=== PATIENT | female | born 1985 | race African-American/Black ===

== ENCOUNTER 2022-03-29 17:09 | Outpatient (CLI) | payer MEDICAID, SELFPAY ==
[2022-04-04 00:59] LABS: Progesterone, HPLC-MS/MS 0.16 ng/mL
== END 2022-03-29 17:10 | disposition home or self-care (01) ==
PROVIDERS: Visit Provider Obstetrics & Gynecology
DX: E03.8 Other specified hypothyroidism (principal); N91.5 Oligomenorrhea, unspecified; N97.0 Female infertility associated with anovulation
CPT/HCPCS: 84144; 84443

== ENCOUNTER 2022-05-22 07:38 | Day surgery (SDC) | payer MEDICAID, SELFPAY ==
[2022-05-22 08:02] VITALS: BMI 40.2
--- NOTE | 2022-05-22 08:10 | PM.PROC ---
Procedure Note Time Seen by Provider: 08:11 Date Seen: 05/22/22 Date of procedure: 05/22/22 Will [facility] bill your pro fee for this procedure?: Yes Procedure: Preoperative diagnosis: Deana is a 36 year-old: endometrial polyp on office hysteroscopy performed by her erp manager on 05/17/22. Left labia majora cysts Postoperative diagnosis: Same Procedure: 1. Vulvar biopsy. 2. Hysteroscopy, Dilation and Curettage using the Truclear incisor Anesthesia: Conscious sedation, paracervical block, local. Surgeon: Alda Lerner MD Interpreter Translator: None Estimated blood loss: 5 mL Specimen: 1. L labial cyst x2. 2. Endometrial curettings. Both sent to pathology. Findings: Exam under anesthesia: There is a 1 x 1 cm firm, cystic mass at the inferior aspect of the left labia majora, just left of the introitus with an adjacent 2 x 3 mm cyst just inferior to the larger labial mass. Uterus: anteverted position, approximately 8 week sized, mobile, with no masses or nodularity palpable. Uterus sounded to 9 cm. No adnexal masses or nodularity palpable. On hysteroscopy: no endometrial polyps noted. The posterior endometrium appeared somewhat thickened otherwise normal endometrium Procedure: Deana was taken to the operating operating room more conscious sedation was found to be adequate. The patient was placed on in the dorsal lithotomy position and an exam under anesthesia was performed with findings stated above. She was then prepped and draped in a normal sterile manner. the base of the labial cysts was injected with 0.5% Marcaine. The larger cysts was then grasped with a forceps and the cyst removed from the base with a scalpel. The smaller cyst was then grasped and removed with the scalpel. The skin was reapproximated using 4-0 Vicryl in a running manner. A bivalve speculum was placed in the vagina. The cervix appears nulliparous. Otherwise no abnormalities. The paracervical block was placed using 0.5% Marcaine, 5 mL was injected at the 4 and 8 o'clock positions on the cervix. The anterior lip of the cervix was grasped with a long Allis clamp. The cervix dilated to Hegar 6. The uterus sounded to 9 cm. The Truclear hysteroscope was advanced into the uterus. A diagnostic hysteroscopy was performed with normal saline as the insufflation medium. Findings are stated above. The Truclear incisor was then advanced through the camera. The curettage was performed with the incisor over an approximately 1 -2 minutes. The incisor was then removed. The endometrial cavity appeared normal. Saline deficit at the end of the procedure 125 mL. Total saline used 1290 mL. nothing was needed for hemostasis The hysteroscope, Allis clamp and speculum were removed from the vaginal canal. The patient tolerated the procedure well. Sponge, lap and instrument counts were correct x2 at the end of the procedure. The patient was taken to the recovery area in stable condition. She received 200mg doxycycline PO prior to the procedure. Received 30 mg Toradol IV prior to being awakened from anesthesia. Surgeon: Alda Lerner MD
[2022-05-22 08:14] LABS: Ur HCG Qualitative* Negative (Negative)
[2022-05-22] MEDS: LACTATED RINGERS 1000 ML 1,000 ML 100 ML IV (08:20)
[2022-05-22] MEDS: SODIUM CHLORIDE 0.9 % (FLUSH) 10 ML SYRINGE IVF (08:20)
[2022-05-22 08:31] VITALS: BP 114/75; PULSE 60; RESP 18; TEMP 36.3; O2SAT 98
[2022-05-22 10:04] VITALS: BP 86/64; PULSE 60; RESP 14; TEMP 35.9; O2SAT 97
[2022-05-22 10:06] VITALS: BP 93/67; PULSE 59; RESP 16; O2SAT 96
--- NOTE | 2022-05-22 10:10 | W.ANESCHARGE ---
Anesthesia Charges Start Date/Time Anesthesia Start Date: 05/22/22 Anesthesia Start Time: 09:18 Stop Date/Time Anesthesia Stop Date: 05/22/22 Anesthesia Stop Time: 10:08 Summary Emergency: No
[2022-05-22 10:15] VITALS: BP 100/65; PULSE 53; RESP 16; O2SAT 97
[2022-05-22 10:30] VITALS: BP 115/77; PULSE 53; RESP 16; O2SAT 98
[2022-05-22 10:45] VITALS: BP 127/89; PULSE 49; RESP 16; O2SAT 99
--- NOTE | 2022-05-22 11:14 | W.ANESCHARGE ---
Anesthesia Charges Start Date/Time Anesthesia Start Date: 05/22/22 Anesthesia Start Time: 09:18 Stop Date/Time Anesthesia Stop Date: 05/22/22 Anesthesia Stop Time: 10:08 Summary Emergency: No
== END 2022-05-22 11:40 | disposition home or self-care (01) ==
PROVIDERS: Visit Provider Obstetrics & Gynecology
PROC: 0UDB8ZZ Extraction of Endometrium, Via Natural or Artificial Opening Endoscopic (ICD-10-PCS; CPT 58558; principal; 2022-05-22 09:00)
DX: N84.0 Polyp of corpus uteri (principal); N90.7 Vulvar cyst
CPT/HCPCS: 58558; 11426; 11422; 00952; 81025; 88305; 88341; 88342; J1100; J1885; J2250; J2405; J2704; J3010; J7120

== ENCOUNTER 2022-11-23 12:18 | Outpatient (CLI) | payer MEDICAID, SELFPAY ==
--- NOTE | 2022-11-23 12:15 | CRLHL7_ITS ---
For Patients: As a result of the Cures Act, medical imaging exams and procedure reports are released immediately into your electronic medical record. You may view this report before your referring provider. If you have questions, please contact your health care provider. INDICATION: First trimester scan, establish dates. COMPARISON: None. TECHNIQUE: Real-time wynn-scale imaging of the pelvis was performed. FINDINGS: Sonographic imaging demonstrates a single living intrauterine gestation. The embryo demonstrates a regular cardiac rate measuring 163 beats per minute. The embryo`s crown-rump length measurement of 3.2 cm corresponds to a gestational age of 10 weeks 0 days with a sonographic due date of 06/21/2023. There is a normal-appearing yolk sac. There are no gross abnormalities noted within the embryo at this early state of development. The gestational sac has a normal appearance. There is no evidence of a perigestational hemorrhage. The amount of fluid within the sac appears appropriate for gestational age. The cervix is closed. The myometrium appears normal. The ovaries are of normal size. Corpus luteal cyst left ovary. There are no suspicious fluid collections noted in the cul-de-sac. IMPRESSION: Normal first trimester OB ultrasound exam. Gestational age calculated at 10 weeks 0 days with a sonographic due date of 06/21/2023. Dictated by Jorgito Nassar MD @ 11/23/2022 12:56:55 PM (Electronically Signed)
== END 2022-11-23 12:19 | disposition home or self-care (01) ==
LOC: US 12:18
PROVIDERS: Visit Provider Physician Assistant
DX: Z34.91 Encounter for supervision of normal pregnancy, unspecified, first trimester (principal); Z3A.10 10 weeks gestation of pregnancy
CPT/HCPCS: 76801

== ENCOUNTER 2022-11-23 14:10 | Outpatient (CLI) | payer MEDICAID, SELFPAY | END 2022-11-23 14:11 | disposition home or self-care (01) | PROVIDERS: Visit Provider Physician Assistant | DX: Z34.91 Encounter for supervision of normal pregnancy, unspecified, first trimester (principal); Z3A.10 10 weeks gestation of pregnancy | CPT/HCPCS: 86592; 86703; 86762; 86787; 86803; 86850; 86870; 86885; 86900; 86901; 86905; 87086; 87340 ==

== ENCOUNTER 2023-03-29 09:10 | Outpatient (CLI) | payer MEDICAID, SELFPAY | END 2023-03-29 09:11 | disposition home or self-care (01) | LOC: NFLDREF 04-03 10:56 | PROVIDERS: Referring Provider Obstetrics & Gynecology; Visit Provider Obstetrics & Gynecology | DX: Z34.92 Encounter for supervision of normal pregnancy, unspecified, second trimester (principal); Z3A.27 27 weeks gestation of pregnancy | CPT/HCPCS: 86592 ==

== ENCOUNTER 2023-04-12 07:04 | Outpatient (CLI) | payer MEDICAID, SELFPAY ==
--- NOTE | 2023-04-12 07:15 | CRLHL7_ITS ---
For Patients: As a result of the Century Cures Act, medical imaging exams and procedure reports are released immediately into your electronic medical record. You may view this report before your referring provider. If you have questions, please contact your health care provider. INDICATION: Third trimester scan, evaluate growth. COMPARISON: 01/01/2023 TECHNIQUE: Real time wynn scale imaging of the fetus was performed. FINDINGS: Sonographic imaging demonstrates a single living intrauterine gestation. Fetus demonstrates a regular cardiac rate of 163 beats per minute. Fetus has a vertex position. The placenta lies posteriorly. Amniotic fluid volume appears normal and there is a single deepest vertical pocket: 6.3 cm. The estimated weight is 1739gm which lies at the 86th %. BPD 86th percentile. HC 79th percentile. AC 93rd percentile. FL 38th percentile. The HC/AC ratio measures 1.05 range (0.96-1.16). IMPRESSION: Sonographic gestational age 31 weeks 3 days and sonographic due date 06/11/2023. Sonographic age 11 days ahead of the clinical age. Estimated weight 86th percentile. Abdominal circumference 93rd percentile. Dictated by Jorgito Nassar MD @ 04/12/2023 8:21:28 AM (Electronically Signed)
== END 2023-04-12 07:05 | disposition home or self-care (01) ==
LOC: US 07:05
PROVIDERS: Visit Provider Obstetrics & Gynecology
DX: Z34.93 Encounter for supervision of normal pregnancy, unspecified, third trimester (principal); Z3A.31 31 weeks gestation of pregnancy
CPT/HCPCS: 76816

== ENCOUNTER 2023-05-13 08:17 | Outpatient (CLI) | payer MEDICAID, SELFPAY ==
--- NOTE | 2023-05-13 08:15 | CRLHL7_ITS ---
For Patients: As a result of the Century Cures Act, medical imaging exams and procedure reports are released immediately into your electronic medical record. You may view this report before your referring provider. If you have questions, please contact your health care provider. INDICATION: SIZE GREATER THAN DATES COMPARISON: 04/12/2023 TECHNIQUE: Real time wynn scale imaging of the fetus was performed. FINDINGS: Sonographic imaging demonstrates a single living intrauterine gestation. Fetus demonstrates a regular cardiac rate of 142 beats per minute. Fetus has a vertex position. The placenta lies posteriorly. Amniotic fluid volume appears normal and there is a single deepest vertical pocket: 5.0 cm. The estimated weight is 2805gm which lies at the 88th %. On the prior OB ultrasound exam dated 04/12/2023 the estimated weight was at the 86th%. BPD 92nd percentile. HC 82nd percentile. AC greater than 97th percentile. FL 26th percentile. The HC/AC ratio measures 0.99 range (0.93-1.08). IMPRESSION: Sonographic gestational age 35 weeks 6 days and sonographic due date 06/11/2023. Sonographic age 11 days ahead of the clinical age. Estimated weight 88th percentile. Abdominal circumference greater than 97th percentile. Dictated by Jorgito Nassar MD @ 05/13/2023 9:29:36 AM (Electronically Signed)
== END 2023-05-13 08:18 | disposition home or self-care (01) ==
LOC: US 08:17
PROVIDERS: Visit Provider Obstetrics & Gynecology
DX: O36.63X0 Maternal care for excessive fetal growth, third trimester, not applicable or unspecified (principal); Z3A.35 35 weeks gestation of pregnancy
CPT/HCPCS: 76816

== ENCOUNTER 2023-05-24 11:15 | Outpatient (CLI) | payer MEDICAID, SELFPAY | END 2023-05-24 11:16 | disposition home or self-care (01) | LOC: NFLDREF 05-28 11:52 | PROVIDERS: Visit Provider Advanced Practice Midwife | DX: Z34.93 Encounter for supervision of normal pregnancy, unspecified, third trimester (principal); O09.03 Supervision of pregnancy with history of infertility, third trimester; Z3A.35 35 weeks gestation of pregnancy | CPT/HCPCS: 87081; 87653 ==

== ENCOUNTER 2023-05-27 09:12 | Outpatient (CLI) | payer MEDICAID, SELFPAY ==
--- NOTE | 2023-05-27 09:15 | CRLHL7_ITS ---
For Patients: As a result of the Century Cures Act, medical imaging exams and procedure reports are released immediately into your electronic medical record. You may view this report before your referring provider. If you have questions, please contact your health care provider. INDICATION: AMA, IVF COMPARISON: 05/13/2023 TECHNIQUE: Real time wynn scale imaging of the fetus was performed. Without non-stress testing. FINDINGS: Sonographic imaging demonstrates a single living intrauterine gestation. Fetus demonstrates a regular cardiac rate of 157 beats per minute. Fetus has a vertex position. The amniotic fluid volume appears normal and there is a single deepest pocket measurement of 5.5 cm. The fetus was active and demonstrated normal breathing movements. There was normal flexion and extension of the trunk and extremities. IMPRESSION: Normal biophysical profile score of 8 out of 8. Dictated by Jorgito Nassar MD @ 05/28/2023 5:36:10 AM (Electronically Signed)
== END 2023-05-27 09:13 | disposition home or self-care (01) ==
LOC: US 09:12
PROVIDERS: Visit Provider Obstetrics & Gynecology
DX: O09.529 Supervision of elderly multigravida, unspecified trimester (principal)
CPT/HCPCS: 76819

== ENCOUNTER 2023-06-08 18:38 | Outpatient (CLI) | payer MEDICAID, SELFPAY ==
[2023-06-08 18:50] VITALS: BP 121/68; PULSE 116; O2SAT 97
[2023-06-08 18:51] VITALS: TEMP 36.8
--- NOTE | 2023-06-08 20:07 | PC.OBNST ---
NST Note NST Note Start: 06/08/23 18:54 Freq: ONCE Status: Active Protocol: Document 06/08/23 20:04 BRAD (Rec: 06/08/23 20:05 AAP [id number]) NST Note 2 Para (# of births) 1 EDC 06/22/23 Gestational Age In Weeks & Days 38 Weeks & 0 Days High Risk Factors Advanced Maternal Age Patient Presented with Complaint(s) of Contractions/cramping Other Complaints Rule out labor Reactive Yes Appropriate for Gestational Age Yes RIN Posada, RN Date 06/08/23 Reactive Yes Appropriate for Gestational Age Yes RIN Parekh, RIN Date 06/08/23 OB NST charge Yes Complete NST Note via Write Note Yes The provider's electronic signature indicates the NST is reactive/appropriate for gestational age. *Note to provider: If an addendum is required, open the patient's chart and click on the note under the Nurse/Allied Health tab.
== END 2023-06-08 19:55 | disposition home or self-care (01) ==
LOC: OB OUT 18:39 → OB 18:39
PROVIDERS: Visit Provider Obstetrics & Gynecology
DX: O47.1 False labor at or after 37 completed weeks of gestation (principal); Z3A.38 38 weeks gestation of pregnancy
CPT/HCPCS: 59025; 99213

== ENCOUNTER 2023-06-14 10:01 | Outpatient (CLI) | payer MEDICAID, SELFPAY ==
[2023-06-14 10:04] VITALS: PULSE 98; O2SAT 98
[2023-06-14 10:07] VITALS: BP 103/63; PULSE 87
[2023-06-14 10:09] VITALS: PULSE 91; TEMP 36.6; O2SAT 96
[2023-06-14 10:14] VITALS: PULSE 76; O2SAT 97
[2023-06-14] MEDS: MORPHINE 10 MG/ML inj IM (11:39)
[2023-06-14] MEDS: hydrOXYzine pamoate 25 MG CAPSULE 100 MG PO (11:40)
--- NOTE | 2023-06-14 13:15 | PC.OBNST ---
NST Note NST Note Start: 06/14/23 10:10 Freq: ONCE Status: Active Protocol: Document 06/14/23 11:43 GREGOR (Rec: 06/14/23 11:56 GREGOR [id number]) NST Note 2 Para (# of births) 1 EDC 06/22/23 Gestational Age In Weeks & Days 38 Weeks & 6 Days High Risk Factors Advanced Maternal Age Patient Presented with Complaint(s) of Contractions/cramping Reactive Yes Appropriate for Gestational Age Yes RIN Mccrary Date 06/14/23 Reactive Yes Appropriate for Gestational Age Yes RIN Delgado RN Date 06/14/23 OB NST charge Yes Complete NST Note via Write Note Yes The provider's electronic signature indicates the NST is reactive/appropriate for gestational age. *Note to provider: If an addendum is required, open the patient's chart and click on the note under the Nurse/Allied Health tab.
== END 2023-06-14 13:05 | disposition home or self-care (01) ==
LOC: OB OUT 10:01 → OB 10:02
PROVIDERS: Visit Provider Obstetrics & Gynecology
DX: O47.1 False labor at or after 37 completed weeks of gestation (principal); Z3A.38 38 weeks gestation of pregnancy
CPT/HCPCS: 59025; 99213; A9270; J2270

== ENCOUNTER 2023-06-17 06:43 | Inpatient (IN) | payer MEDICAID, SELFPAY ==
[2023-06-17] VITALS (43 sets, daily range): BP systolic 112–143; BP diastolic 58–84; PULSE 60–96; RESP 18; TEMP 36.5–37.2; O2SAT 97–100; BMI 34.8
--- NOTE | 2023-06-17 07:35 | W.PM.LDBA ---
Subjective History of Present Illness Time Seen by Provider: 07:25 Narrative: Patient is being admitted to Labor and Delivery for induction of labor secondary to AMA and IVF . She is a 37 year old at 39 2/7 weeks gestation. Her full history and physical was dictated by Dr. Mao on 06/03/23. Please see this for details. She feels well this morning. Has had contractions intermittently for a week. Was in to the Center on Saturday for rule out labor and given medication to help her sleep. Specific Issues/Plans Spouse: Yony Olivarez. Daughter: Ashley, born 2006 in [place]. Baby: Boy! H&P 06/03/2023 Dr. Mao 1. IVF Patient reports pre implantation genetics, they are having a boy Level 2 ultrasound with the echo, consult with [facility]: Order entered on 12/21/2022: scheduled for 01/25: Normal. echocardiogram 02/27/2023: Normal. Growth at 30 and 36 weeks recommended by [facility]: 04/12/23: EFW 86%tile, AC 93%tile. SDP 6.3 cm 05/13/23: EFW 88%ile, AC >97%ile. SDP 5.0cm Weekly NST starting at 34 weeks recommended by [facility] Consider delivery at 39 weeks: she would prefer the soonest available which would be on 06/17/23 she will be 39 2/7, form sent out. 2. Obesity, BMI 39.7 Hemoglobin A1c: 5.2% Early 1 hour GTT: 87 Anesthesia consult Consider offering nutrition consult testing Daily ASA 81mg - stopped at 37 weeks. 3. AMA, >35 4. Declined gonorrhea and chlamydia, had STI screening prior to IVF 5. 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 Select blood for transfusion based on serologic compatibility 6. Bilateral carpal tunnel -suboptimal response to wrist splints -Referral to orthopedics placed 04/26/23, did not go TDAP 05/10/23 Flu declined RSV declined Covid booster Declined OB - Problem Based A/P Additional Plan (1) Advanced maternal age (AMA) in : Status: Acute (2) Conceived by in vitro fertilization: Status: Acute Delivery/Labor/Induction Plan Plan: induction Induction method: per pitocin protocol OB Result Labs Blood Type: B (+) positive Rubella: immune RPR/VDLR: nonreactive GBS Status: negative HBsAG: negative OB Exam Physical Exam Vital signs: Pulse BP Pulse Ox 69 132/83 97 06/17/23 07:17 06/17/23 07:17 06/17/23 07:18 Narrative: General Appearance: Alert, cooperative black female in no acute distress Pulm: CTA bilaterally CV: RRR Ext: trace edema Detailed Labor and Delivery Exam Patient Gravid: Yes Dilation (cm): 3 Effacement (%): 80 Cervix position: mid Consistency: soft Contraction Frequency: Occasional Contraction intensity: Mild Fetus (Single) Station: -2 (well applied)
[2023-06-17 08:20] LABS: Basophils Percent Auto 0.3 % (0.0-3.0); Eosinophils Percent Auto 0.5 % (0.0-7.0); Hematocrit 34.4 % (33.0-51.0); Hemoglobin* 11.2 gm/dL (12.0-16.0); Immature Granulocytes Pct Auto 0.3 %; Lymphocytes Percent Auto 38.4 % (20-44); Mean Corpuscular HGB Conc 33 gm/dL (32-36); Mean Corpuscular Hemoglobin 28 pg (26-34); Mean Corpuscular Volume 85 fL (80-100); Monocytes Percent Auto 9.8 % (0.0-11.0); Neutrophils Percent Auto 50.7 % (42.0-72.0); Platelet Count* 108 K/uL (140-440); Red Blood Count 4.05 m/uL (4.00-5.20); White Blood Count* 3.67 K/uL (4.50-11.00)
[2023-06-17 08:21] LABS: Slide Review Reflex No
[2023-06-17] MEDS: LACTATED RINGERS 1000 ML 1,000 ML 125 ML IV ×3 (08:32→19:24)
[2023-06-17] MEDS: OXYTOCIN 30 unit/500 ML in NS 30 UNIT/500 ML BAG IVPB (08:33)
[2023-06-17 16:17] LABS: Platelet Count* 131 K/uL (140-440)
[2023-06-17] MEDS: ROPIVACAINE 0.2% 100 ml 100 ML 12 MG EPIDURAL (16:55)
[2023-06-17] MEDS: LIDOCAINE 2% (PF) 5 ML VIAL EPIDURAL (16:55)
[2023-06-17] MEDS: ROPIVACAINE 0.2 % PF 10 ML INJ 20 MG EPIDURAL (16:56)
--- NOTE | 2023-06-17 17:11 | PM.ANBPRC ---
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 (ICD-10) Oligomenorrhea ?N91.5 - Oligomenorrhea, unspecified (ICD-10) Female infertility associated with anovulation ?N97.0 - Female infertility associated with anovulation (ICD-10) Endometrial polyp ?N84.0 - Polyp of corpus uteri (ICD-10) Obesity (BMI 35.0-39.9 without comorbidity) ?E66.9 - Obesity, unspecified (ICD-10) Subclinical hypothyroidism ?E03.8 - Other specified hypothyroidism (ICD-10) Pyogenic granuloma of skin (2019) ?L98.0 - Pyogenic granuloma (ICD-10) Polycystic ovary syndrome ?E28.2 - Polycystic ovarian syndrome (ICD-10) Surgical History History of hysteroscopy ?Z98.890 - Other specified postprocedural states (ICD-10) Social History (Updated 06/03/23 @ 09:17 by Shania Mao MD) Narrative: Lives in [place] with daughter, sister, mother and . Works as [employer]. Will return in July. She doesn't smoke, ETOH, recreational drug use. Originally from [facility]. What is your current living situation?: I presently have a place to live Problems where you live: no known problems In the past 12 months, utilities in danger of being shut off: no In past 12 months, lack of transportation kept you from medical appts, meetings, work, or getting things needed for daily living: no In the past 12 mos, have been you worried that your food would run out before you had money to buy more?: never true In the past 12 mos, the food you bought just didn't last and you didn't have money to buy more?: never true Smoking Status: Never smoker Do you use any of these nicotine containing products: None How often do you have a drink containing alcohol: never How often do you have six or more drinks on one occasion: Never AUDIT-C Alcohol total score: 0 Non-prescribed substance use: denies use Caffeine: Yes (coffee once in a while) How often does anyone, including family, friends and others, physically hurt you: never How often does anyone, including family, friends and others, insult or talk down to you: never How often does anyone, including family, friends and others, threaten you with harm: never How often does anyone, including family, friends and others, scream or curse at you: never Little interest or pleasure in doing things: not at all Feeling down, depressed, or hopeless: not at all Are you using contraception or practicing any form of control: No Meds Home Medications and Allergies Allergies Allergy/AdvReac Type Severity Reaction Status Date / Time No Known Allergies Allergy Verified 06/10/23 09:09 Results Labs Labs: Laboratory Results - last 24 hr 06/17/23 06/17/23 08:07 16:13 WBC 3.67 L RBC 4.05 Hgb 11.2 L Hct 34.4 MCV 85 MCH 28 MCHC 33 RDW Coeff of Dora 15.0 Plt Count 108 L 131 L Neut % (Auto) 50.7 Lymph % (Auto) 38.4 Meriwether % (Auto) 9.8 Eos % (Auto) 0.5 Baso % (Auto) 0.3 Neut # (Auto) 1.90 Lymph # (Auto) 1.40 Meriwether # (Auto) 0.40 Eos # (Auto) 0.00 Baso # (Auto) 0.00 Abs Immat Gran (auto) 0.00 Imm/Tot Granulo (auto) 0.3 Blood Type B Positive Antibody Screen NEGATIVE Vital Signs Vital Signs: Last Vital Signs Temp 98.0 F 06/17/23 15:48 Pulse 85 06/17/23 17:07 BP 125/79 06/17/23 17:07 Pulse Ox 99 06/17/23 16:55 Weight: 103.873 kg Height: 172.72 cm Anesthesia Procedures Epidural Insertion Patient Location: OB Start Time: 16:30 Stop Time: 17:12 Start Date: 06/17/23 Stop Date: 06/17/23 Reason for Block: procedure for pain Patient Position: sitting Performed By: Jozef Pritchard Preanesthetic Checklist: IV checked, risks and benefits discussed, surgical consent, monitors and equipment checked, pre-op evaluation, timeout performed and anesthesia consent Prep: chlorhexidine gluconate Monitoring: blood pressure monitoring, continuous pulse oximetry and heart rate Approach: midline Vertebral Space: lumbar (1-5) Epidural Technique: KAMAR air Needle Type: Tuohy needle Injection Technique: continuous catheter Needle gauge: 17 Needle Length (cm): 10 cm Needle Insertion Depth (cm): 7 Catheter Gauge: 19 Catheter Type: multi-orifice Catheter at skin depth (cm): 13 Test Dose Result: negative and lidocaine 1.5% with epinephrine 1 to 200,000
--- NOTE | 2023-06-17 18:09 | PM.OBPNL ---
Subjective Time Seen by Provider: 18:09 Date Seen: 06/17/23 Narrative: The patient is comfortable after epidural placement. She is unaware of contractions. Objective Vital Signs: Last Vital Signs Temp 98.0 F 06/17/23 15:48 Pulse 74 06/17/23 17:57 BP 122/70 06/17/23 17:57 Pulse Ox 99 06/17/23 16:55 Pelvic Exam Dilation (cm): 5 Effacement (%): 80 Station: -1 Contractions Monitor mode: External Contraction Frequency: 2-3 minutes Contraction intensity: Mild Pitocin Rate (mU/min): 16 Assessment Station: -2 (well applied) Amniotic Membrane Status: AROM (Amniotomy performed. Clear fluid noted.) Status: Category l Heart Rate Baseline: 135 Brake Linings Coater Variability: Moderate (6-25) Monitor Accelerations: Present Monitor Decelerations: None Plan Plan: Amniotomy performed. Continue Pitocin infusion. Anticipate vaginal delivery.
--- NOTE | 2023-06-17 21:35 | PM.OBPNL ---
Subjective Time Seen by Provider: 21:35 Date Seen: 06/17/23 Narrative: Patient still comfortable. FHR tracing demonstrating occasional variable and late decelerations. Called to review strip and evaluate patient. Objective Vital Signs: Last Vital Signs Temp 98.6 F 06/17/23 19:24 Pulse 69 06/17/23 21:23 BP 138/68 06/17/23 21:23 Pulse Ox 98 06/17/23 21:31 Pelvic Exam Dilation (cm): 8 Effacement (%): 90 Station: -1 Contractions Monitor mode: External Contraction pattern: Regular Contraction intensity: Strong/Firm Pitocin Rate (mU/min): 11 Assessment Station: -1 (well applied) Amniotic Membrane Status: AROM (Amniotomy performed. Clear fluid noted.) Status: Category ll Heart Rate Baseline: 135 Electric Track Switch Maintainer Variability: Moderate (6-25) Monitor Accelerations: Present Monitor Decelerations: Variable Plan Plan: IUPC and FSE placed. Continue to monitor.
[2023-06-17] MEDS: LACTATED RINGERS 1000 ML 1,000 ML 525 ML IV (22:16)
[2023-06-18] VITALS (32 sets, daily range): BP systolic 100–170; BP diastolic 64–97; PULSE 62–94; RESP 16–18; TEMP 36.4–37.2; O2SAT 91–98
--- NOTE | 2023-06-18 01:17 | W.PM.OBVAGDE ---
OB Procedure Vag Delivery Mother Details Mother Details: The patient is a 37 year-old, 2, Para 1, admitted on 06/17/23 at 39 Weeks and 2 Days gestation for induction of labor secondary to advanced maternal age and IVF . : 2 Para: 1 Weeks Gestation: 39.2 Admission Date: 06/17/23 Additional Details Amniotic Membrane Status: intact Amniotic Membrane Rupture Date: 06/17/23 Amniotic Membrane Rupture Time: 18:05 Amniotic Membrane Fluid Description: Clear Analgesia/Anesthesia Type: Epidural (@1620) Waterbirth: No Intrapartal Events: Labor Induction Induction Method: per pitocin protocol Delivery augmentation: rupture of membranes Labor Onset: 18:05 Complete: 23:38 Pushin:36 Heart: heart tones during second stage were category 2, baseline 125 bpm with variable decelerations. Delivery Details Delivery Date: 06/18/23 Delivery Time: 00:48 Route of delivery: Gender: Male Viability: Alive; Heart Rate Present Position at Delivery: OA Delivery Details: Delivered over 2nd degree perineal laceration via spontaneous vaginal delivery. There was a 90 second shoulder dystocia, relieved with Vitaliy positioning, suprapubic pressure, and Godoy screw maneuver. Nuchal cord x1 was reduced over the head prior to delivery of the shoulders. Infant was briefly placed on the maternal abdomen, noted to have poor tone and no spontaneous breathing efforts. Cord was quickly clamped and cut and the was taken to the warmer for evaluation and resuscitation. He required 40 seconds of PPV. Apgars were 1, 6 and 8 t 1, 5 and 10 minutes respectively. weight: 9# 6 oz. 1 Minute Interval Total Score: 1 5 Minute Interval Total Score: 6 10 Minute Interval Total Score: 8 Additional Details Shoulder Dystocia: Yes (90 seconds) Placenta Delivery Time: 10:08 Placental Delivery Description: Spontaneous (sent for pathology) Delivery repair: Chromic Procedure Done: Global Blood Loss: 200 Laceration: Perineal - 2nd Degree Episiotomy Description: None Blood Loss Measurement Type: QBL Bakri Used: No Sponge/Need Count Correct: Yes Cord Vessel Description: 3 Vessels (Cord gasses were drawn by RN and sent to lab) Event Summary Status: Mother and were stable after delivery. Disposition: floor
[2023-06-18] MEDS: miSOPROStoL 800 MCG/4 TABLET PR (01:18)
[2023-06-18 01:57] LABS: Hematocrit 36.4 % (33.0-51.0); Hemoglobin* 12.1 gm/dL (12.0-16.0); Mean Corpuscular HGB Conc 33 gm/dL (32-36); Mean Corpuscular Hemoglobin 28 pg (26-34); Mean Corpuscular Volume 84 fL (80-100); Platelet Count* 124 K/uL (140-440); Red Blood Count 4.34 m/uL (4.00-5.20); White Blood Count* 7.25 K/uL (4.50-11.00)
[2023-06-18 02:02] LABS: Slide Review Reflex No
[2023-06-18] MEDS: LABETALOL HCL 5 MG/ML inj IVP ×2 (02:06→02:22)
[2023-06-18 02:15] LABS: Alanine Aminotransferase* 18 U/L (4-35); Aspartate Amino Transferase* 38 U/L (12-35); Blood Urea Nitrogen* 5 mg/dL (5-24); Creatinine* 0.8 mg/dL (0.5-1.5); Est. Creatinine Clearance* 99.01; Estimated Glomerular Filt Rate 98 ml/min
[2023-06-18] MEDS: LACTATED RINGERS 1000 ML 1,000 ML 75 ML IV ×2 (02:16→11:49)
[2023-06-18] MEDS: MAGNESIUM IV 4 GM/100 ML PIGGYBACK IVPB (02:18)
[2023-06-18] MEDS: ACETAMINOPHEN 500 MG TABLET 1000 MG PO ×2 (03:21→09:17)
[2023-06-18] MEDS: IBUPROFEN 600 MG TABLET PO ×2 (06:00→11:50)
[2023-06-18 08:28] LABS: White Blood Count* 9.26 K/uL (4.50-11.00)
[2023-06-18 08:29] LABS: Hematocrit 32.2 % (33.0-51.0); Hemoglobin* 10.8 gm/dL (12.0-16.0); Mean Corpuscular HGB Conc 34 gm/dL (32-36); Mean Corpuscular Hemoglobin 28 pg (26-34); Mean Corpuscular Volume 83 fL (80-100); Platelet Count* 106 K/uL (140-440)
[2023-06-18 08:45] LABS: Slide Review Reflex No
[2023-06-18 08:58] LABS: Alanine Aminotransferase* 11 U/L (4-35); Aspartate Amino Transferase* 59 U/L (12-35); Blood Urea Nitrogen* 3 mg/dL (5-24); Creatinine* 0.7 mg/dL (0.5-1.5); Est. Creatinine Clearance* 113.16; Estimated Glomerular Filt Rate 116 ml/min
[2023-06-18 09:06] LABS: Magnesium* 4.3 mg/dL (1.5-2.6)
[2023-06-18] MEDS: DOCUSATE SODIUM 100 MG CAPSULE PO (09:17)
--- NOTE | 2023-06-18 10:34 | P.OBPN_ITS ---
OB - PN:Subj Subjective Date Seen: 06/18/23 Interval history: Marilia is a 37 yo G2 now P2-0-0-2 woman who is PPD 0 s/p vaginal delivery complicated by 90 second shoulder dystocia. She was diagnosed with preeclampsia with severe features based on blood pressure criteria . She was started on magnesium sulfate for seizure prophylaxis early this morning. OB Problem List: 1. IVF * Patient reports pre implantation genetics, they are having a boy * Level 2 ultrasound with the echo, consult with M: Order entered on 12/21/2022: scheduled for 01/25: Normal. * echocardiogram 02/27/2023: Normal. * Growth at 30 and 36 weeks recommended by [facility]: * 04/12/23: EFW 86%tile, AC 93%tile. SDP 6.3 cm * 05/13/23: EFW 88%ile, AC >97%ile. SDP 5.0cm * Weekly NST starting at 34 weeks recommended by [facility] * Consider delivery at 39 weeks: she would prefer the soonest available which would be on 06/17/23 she will be 39 2/7, form sent out. 2. Obesity, BMI 39.7 * Hemoglobin A1c: 5.2% * Early 1 hour GTT: 87 * Anesthesia consult * Consider offering nutrition consult * testing * Daily ASA 81mg - stopped at 37 weeks. 3. AMA, >35 4. Declined gonorrhea and chlamydia, had STI screening prior to IVF 5. 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 Select blood for trans fusion based on serologic compatibility 6. Bilateral carpal tunnel -suboptimal response to wrist splints -Referral to orthopedics placed 04/26/23, did not go Narrative: Marilia is feeling well. well. She is ambulating. Denies heavy bleeding, denies pain. No chest pain, no headache. OB - PN: Obj Exam Physical Exam: Vital signs: Temp Pulse Resp BP Pulse Ox O2 Del Method 98.2 F 87 16 114/69 98 Room Air 06/18/23 07:55 06/18/23 07:55 06/18/23 07:55 06/18/23 08:55 06/18/23 07:55 06/18/23 07:55 Fluid balance is +2955. She has had 2000 cc of urine in last 24 hours. Narrative: Physical exam: Vitals as noted above. General: No acute distress Psych: Alert and oriented x 3, full affect HEENT: Normocephalic, atraumatic Heart: Regular rate rhythm, no murmur rub or gallop Lungs: Clear to auscultation bilaterally Abdomen: Soft, NT, fundus below umbilicus Lower extremities: 2+ edema bilaterally to upper aspect of lower leg, nontender OB - PN: Obj Data Labs Labs: Laboratory Results - last 24 hr 06/17/23 06/18/23 06/18/23 16:13 01:50 08:21 WBC 7.25 9.26 RBC 4.34 3.90 L Hgb 12.1 10.8 L Hct 36.4 32.2 L MCV 84 83 MCH 28 28 MCHC 33 34 Plt Count 131 L 124 L 106 L BUN 5 3 L Creatinine 0.8 0.7 Estimated Creat Clear 99.01 113.16 Estimated GFR 98 116 Magnesium 4.3 H* AST 38 H 59 H ALT 18 11 OB - PN: A/P Delivery Assessment and Plan (1) Pre-eclampsia affecting puerperium: Problem details: with severe features (severely elevated BP) Status: Acute Assessment and Plan: Continue magnesium sulfate for at least 24 hours. She has not yet had diuresis, and I will watch for that. Continue labs every 6 hours. Her platelets have been on the low side but always above 100 thus far. Slight elevation of transaminases. Stable. (2) Vaginal delivery: Status: Acute Assessment and Plan: Otherwise, appropriate course . (3) Shoulder dystocia during labor and delivery, delivered: Status: Acute Plan day: 0 Comments: Anticipate discharge PPD #2.
[2023-06-18 14:49] LABS: Hematocrit 31.4 % (33.0-51.0); Hemoglobin* 10.6 gm/dL (12.0-16.0); Mean Corpuscular HGB Conc 34 gm/dL (32-36); Mean Corpuscular Hemoglobin 28 pg (26-34); Mean Corpuscular Volume 83 fL (80-100); Platelet Count* 115 K/uL (140-440); White Blood Count* 8.34 K/uL (4.50-11.00)
[2023-06-18 14:55] LABS: Slide Review Reflex No
[2023-06-18 15:19] LABS: Alanine Aminotransferase* 17 U/L (4-35); Aspartate Amino Transferase* 54 U/L (12-35); Blood Urea Nitrogen* 3 mg/dL (5-24); Creatinine* 0.7 mg/dL (0.5-1.5); Est. Creatinine Clearance* 113.16; Estimated Glomerular Filt Rate 116 ml/min
[2023-06-18 15:46] LABS: Magnesium* 5.1 mg/dL (1.5-2.6)
[2023-06-18 20:21] LABS: Hematocrit 32.2 % (33.0-51.0); Hemoglobin* 10.7 gm/dL (12.0-16.0); Mean Corpuscular HGB Conc 33 gm/dL (32-36); Mean Corpuscular Hemoglobin 28 pg (26-34); Mean Corpuscular Volume 84 fL (80-100); Platelet Count* 120 K/uL (140-440); Red Blood Count 3.85 m/uL (4.00-5.20)
[2023-06-18 20:23] LABS: Slide Review Reflex No
[2023-06-18 20:44] LABS: Creatinine* 0.9 mg/dL (0.5-1.5); Est. Creatinine Clearance* 88.01; Estimated Glomerular Filt Rate 86 ml/min
[2023-06-18 20:45] LABS: Alanine Aminotransferase* 17 U/L (4-35); Aspartate Amino Transferase* 45 U/L (12-35); Blood Urea Nitrogen* 4 mg/dL (5-24)
[2023-06-18 20:51] LABS: Magnesium* 6.4 mg/dL (1.5-2.6)
[2023-06-19] MEDS: LACTATED RINGERS 1000 ML 1,000 ML 75 ML IV (01:22)
[2023-06-19 01:38] LABS: Hemoglobin* 9.7 gm/dL (12.0-16.0); Mean Corpuscular HGB Conc 33 gm/dL (32-36); Mean Corpuscular Hemoglobin 28 pg (26-34); Mean Corpuscular Volume 84 fL (80-100); Platelet Count* 102 K/uL (140-440); Red Blood Count 3.46 m/uL (4.00-5.20); White Blood Count* 6.06 K/uL (4.50-11.00)
[2023-06-19 01:43] LABS: Slide Review Reflex No
[2023-06-19 01:53] LABS: Alanine Aminotransferase* 17 U/L (4-35); Aspartate Amino Transferase* 30 U/L (12-35); Blood Urea Nitrogen* 3 mg/dL (5-24); Creatinine* 0.8 mg/dL (0.5-1.5); Est. Creatinine Clearance* 99.01; Estimated Glomerular Filt Rate 98 ml/min
[2023-06-19 02:01] LABS: Magnesium* 5.5 mg/dL (1.5-2.6)
[2023-06-19 03:00] VITALS: BP 108/77; PULSE 68; RESP 18; TEMP 36.8
[2023-06-19 06:42] LABS: Hemoglobin* 9.8 gm/dL (12.0-16.0)
--- NOTE | 2023-06-19 08:27 | P.OBPN_ITS ---
OB - PN:Subj Subjective Time Seen by Provider: 07:10 Date Seen: 06/19/23 Interval history: Marilia is a 37 yo G2 now P2-0-0-2 woman who is PPD 1 s/p vaginal delivery complicated by 90 second shoulder dystocia. She was diagnosed with preeclampsia with severe features based on blood pressure criteria . She was started on magnesium sulfate for seizure prophylaxis early this morning. Last labs at 1:30 a.m. significant for down trending platelets, 102. Patient is feeling well this morning, no acute concerns. She notes no significant abdominal pain. Moderate vaginal bleeding, without passage of clots. She denies any headache, vision changes or right upper quadrant pain. She notes significant swelling of the bilateral lower extremities, but notes this is stable/improving somewhat over time. Voiding without difficulty, passing flatus. OB Problem List: 1. IVF * Patient reports pre implantation genetics, they are having a boy * Level 2 ultrasound with the echo, consult with M: Order entered on 12/21/2022: scheduled for 01/25: Normal. * echocardiogram 02/27/2023: Normal. * Growth at 30 and 36 weeks recommended by [facility]: * 04/12/23: EFW 86%tile, AC 93%tile. SDP 6.3 cm * 05/13/23: EFW 88%ile, AC >97%ile. SDP 5.0cm * Weekly NST starting at 34 weeks recommended by [facility] * Consider delivery at 39 weeks: she would prefer the soonest available which would be on 06/17/23 she will be 39 2/7, form sent out. 2. Obesity, BMI 39.7 * Hemoglobin A1c: 5.2% * Early 1 hour GTT: 87 * Anesthesia consult * Consider offering nutrition consult * testing * Daily ASA 81mg - stopped at 37 weeks. 3. AMA, >35 4. Declined gonorrhea and chlamydia, had STI screening prior to IVF 5. 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 Select blood for transfusion based on serologic compatibility 6. Bilateral carpal tunnel -suboptimal response to wrist splints -Referral to orthopedics placed 04/26/23, did not go OB - PN: Obj Exam Physical Exam: Vital signs: Temp Pulse Resp BP Pulse Ox O2 Del Method 98.2 F 68 18 108/77 98 Room Air 06/19/23 03:00 06/19/23 03:00 06/19/23 03:00 06/19/23 03:00 06/18/23 23:04 06/19/23 03:00 Narrative: Physical exam: General: No acute distress Psych: Alert and oriented x3, full affect Heart: Regular rate and rhythm, no murmur rub or gallop Lungs: Clear to auscultation bilaterally Abdomen: Soft, nondistended. Fundus at umbilicus, mild tenderness which is appropriate for state. Lower extremities: 3+ pitting edema bilaterally. OB - PN: Obj Data Labs Labs: Laboratory Results - last 24 hr 06/18/23 06/18/23 06/18/23 08:21 14:33 20:15 WBC 9.26 8.34 7.10 RBC 3.90 L 3.80 L 3.85 L Hgb 10.8 L 10.6 L 10.7 L Hct 32.2 L 31.4 L 32.2 L MCV 83 83 84 MCH 28 28 28 MCHC 34 34 33 Plt Count 106 L 115 L 120 L BUN 3 L 3 L 4 L Creatinine 0.7 0.7 0.9 Estimated Creat Clear 113.16 113.16 88.01 Estimated GFR 116 116 86 Magnesium 4.3 H* 5.1 H* 6.4 H* AST 59 H 54 H 45 H ALT 11 17 17 06/19/23 06/19/23 01:33 06:20 WBC 6.06 RBC 3.46 L Hgb 9.7 L 9.8 L Hct 29.0 L MCV 84 MCH 28 MCHC 33 Plt Count 102 L BUN 3 L Creatinine 0.8 Estimated Creat Clear 99.01 Estimated GFR 98 Magnesium 5.5 H* AST 30 ALT 17 OB - PN: A/P Delivery Assessment and Plan (1) Pre-eclampsia affecting puerperium: Problem details: with severe features (severely elevated BP) Status: Acute Assessment and Plan: Ms. uQinones is a 37yo seen on PPD1 from [facility] complicated by shoulder dystocia and preeclampsia with severe features. She is s/p magnesium sulfate for 24 hours as of 0330 this morning. She is asymptomatic at present, blood pressures entirely within normal range overnight. Last HELLP labs at 0130 were significant for downtrending platelets, at 102. Robust UOP, 1.2L since 0000 this morning. Benign physical exam aside from 3+ pitting edema bilaterally. Ms. Quinones is interested in early dismissal today. I strongly encouraged her to stay through the day today for repeat labs and BP monitoring. I explained the pathophysiology of preeclampsia with severe features, where we expect to see BP improvement at this point in the period but BP often will increase with time. Medically, I recommend at least 24 hours of BP monitoring post- magnesium for all patients with preeclampsia with SF with the goal of early initiation of anti-hypertensive regimen as needed to prevent readmission. She expressed understanding and will consider this further. For her safety, at a minimum I plan to repeat labs to ensure her platelets have stabilized/improved and would recommend monitoring through the morning. She is agreeable to this. If she discharges to home, we reviewed strict return precautions, BP monitoring at home and interval RN BP check in the clinic. No other acute concerns at this time. All questions answered. (2) Vaginal delivery: Status: Acute (3) Shoulder dystocia during labor and delivery, delivered: Status: Acute
[2023-06-19 09:16] VITALS: BP 113/79; PULSE 74; RESP 18; TEMP 36.6; O2SAT 95
[2023-06-19 09:16] LABS: Hematocrit 32.2 % (33.0-51.0); Hemoglobin* 10.7 gm/dL (12.0-16.0); Mean Corpuscular HGB Conc 33 gm/dL (32-36); Mean Corpuscular Hemoglobin 28 pg (26-34); Mean Corpuscular Volume 84 fL (80-100); Platelet Count* 123 K/uL (140-440); Red Blood Count 3.85 m/uL (4.00-5.20); White Blood Count* 5.76 K/uL (4.50-11.00)
[2023-06-19 09:19] LABS: Slide Review Reflex No
[2023-06-19 09:31] LABS: Alanine Aminotransferase* 17 U/L (4-35); Aspartate Amino Transferase* 31 U/L (12-35); Blood Urea Nitrogen* 3 mg/dL (5-24); Creatinine* 0.7 mg/dL (0.5-1.5); Est. Creatinine Clearance* 113.16; Estimated Glomerular Filt Rate 116 ml/min
[2023-06-19] MEDS: DOCUSATE SODIUM 100 MG CAPSULE PO (09:38)
[2023-06-19 12:20] VITALS: BP 126/84; PULSE 61; RESP 18; TEMP 36.8; O2SAT 99
[2023-06-19 16:27] VITALS: BP 136/88; RESP 16; TEMP 36.9; O2SAT 96
[2023-06-19 20:01] VITALS: BP 135/79; PULSE 63; RESP 16; TEMP 36.6
[2023-06-20 00:42] VITALS: BP 143/76; PULSE 56; RESP 16; O2SAT 99
[2023-06-20] MEDS: NIFEdipine 30 MG TAB.ER.24 PO (01:06)
[2023-06-20 04:21] VITALS: BP 133/75; PULSE 72; RESP 16; O2SAT 99
--- NOTE | 2023-06-20 07:37 | P.DS_ITS ---
DS: Providers Provider Time Seen by Provider: 07:37 Date Seen: 06/20/23 Date of admission: 06/17/23 06:43 Primary care physician: Not a Local Provider Admitting Clinician: Dina Lopez MD Attending Physician on discharge: Dina Lopez MD Date of Discharge: 06/20/23 DS: Diagnosis Discharge Diagnosis (1) Vaginal delivery: Status: Acute (2) Shoulder dystocia during labor and delivery, delivered: Status: Acute (3) state: Status: Acute (4) Lactating mother: Status: Acute (5) Pre-eclampsia affecting puerperium: Status: Acute Problem details: with severe features (severely elevated BP) Exam Narrative: Exam Narrative: VSS, afebrile GENERAL APPEARANCE: ?normal affect, alert, no distress MOOD: ?appropriate HEENT: normocephalic, neck supple, full ROM CHEST: ?Symmetrical chest wall movement. ?Normal respiratory effort. ?Clear to auscultation HEART: ?regular rate and rhythm ABDOMEN: ?soft, non-tender. Uterine fundus is firm, 2 above Umbilicus, Midline and is appropriate for the stage of recovery. ?Bowel sounds present. PERINEUM: ?mild edema of the perineum, there is a 2nd degree laceration that is healing well. EXTREMITIES: ?normal and +2 edema Const: Vital Signs, click to edit/add: Vital Signs - 24 hr 06/19/23 09:16 06/19/23 12:20 06/19/23 16:27 Temperature 97.8 F 98.2 F 98.5 F Pulse Rate [Blood Pressure Cuff] 74 61 Respiratory Rate 18 18 16 Blood Pressure [Le ft Arm] 113/79 126/84 136/88 Pulse Oximetry 95 99 96 Oxygen Delivery Me thod Room Air Room Air Room Air 06/19/23 20:01 06/20/23 00:42 06/20/23 04:21 Temperature 97.9 F Pulse Rate [Blood Pressure Cuff] 63 56 L 72 Respiratory Rate 16 16 16 Blood Pressure [Le ft Arm] 135/79 143/76 H 133/75 Pulse Oximetry 99 99 Oxygen Delivery Me thod Room Air Room Air Room Air Documenting provider has reviewed patient's vital signs: yes OB - DS: Summary Hospital Course Hospital Course: Marilia is a 37 y.o. G 2 P 2 who was admitted to [facility] for AMA/IVF. ?She had an NVD complicated by a shoulder dystocia and severe preeclampsia requiring magnesium sulfate. The patient feels well. ?The pain is well controlled with current medications. ?She has no new complaints. ?She is breast feeding and reports things are going well.? the patient has done well.? Vitals have been stable on current dose of nifedipine.? She has remained afebrile.? Has a good appetite, is tolerating a general diet. ?She is voiding without difficulty.? She is passing gas and has had a bowel movement.? She is ambulating and denies any dizziness.? Has Small amount of rubra lochia. She is not planning for prevention. Problems: Severe preeclampsia plan: Discharge home with baby. Follow up in 2 weeks and 6 weeks. , may follow up with if needed Severe preeclampsia -treated with magnesium sulfate. -continue nifedipine at home -follow up in 3-5 days for a blood pressure check -Continue to check blood pressures twice a day at home, call if elevated Peripartum Data Infant delivery method: Vaginal Laceration description: Perineal - 2nd Degree complications: other (severe preeclampsia) Infant Gender: Male Discharge Plan: Home Status at Discharge Functional status at discharge: independent ambulation Overall status at discharge: patient is progressing back to baseline Time Spent with Patient Time attestation: Total time spent providing and/or coordinating discharge services: Time spent: Less than 30 minutes Discharge Plan Discharge Disposition: Home, Self-Care Date of Admission: 06/17/23 06:43 Attending Provider on Discharge: Glory Nesbitt Primary Care Provider: Provider,Not a Local Condition: Stable Anticipated Discharge Date/Time: 06/20/23 10:00 Discharge Medications: New docusate sodium 100 mg Capsule 100 mg PO BID PRNQty: 100 0RF Rx Instructions: Take 1 cap 1-2 times a day as needed for constipation. ibuprofen 600 mg Tablet 600 mg PO Q6H PRNQty: 60 0RF nifedipine 30 mg Tablet Extended Release 24hr 30 mg PO DAILY Qty: 30 0RF Continued PNV #[id number] acid-dha 35 mg iron-5 mg iron-1 mg capsule 1 cap PO QDAY Qty: 300 1RF Discharge Orders: Discharge Order (Routine); Ordered 11/09/23 Ordered By: Glory Nesbitt Patient Education: OB Over the Counter Medication Information, OB Vaginal/Breast Feeding Additional Instructions: Follow up in 3-5 days for a blood pressure check. Continue to monitor blood pressures twice a day, call if 140/90s or higher, or if having symptoms - headache, vision changes or pain on right side where ribs end. Continue blood pressure medication daily at this time. Follow up in 2 weeks and 6 weeks. Activity Level: Activity as Tolerated Discharge Diet: Regular Follow Up Appointments: Provider,Not a Local [Primary Care Provider] - Forms: Slip Stoppersth Info Instructions
[2023-06-20 08:06] VITALS: BP 125/78; PULSE 79; RESP 16; O2SAT 95
== END 2023-06-20 10:09 | disposition home or self-care (01) | DRG 807 ==
PROVIDERS: Nurse Anesthetist, Certified Registered; Obstetrics & Gynecology; Admitting Provider Obstetrics & Gynecology; Visit Provider Obstetrics & Gynecology
DX: O99.214 Obesity complicating childbirth (principal); Z37.0 Single live birth; O66.0 Obstructed labor due to shoulder dystocia; O14.15 Severe pre-eclampsia, complicating the puerperium; O70.1 Second degree perineal laceration during delivery; E66.9 Obesity, unspecified; Z3A.39 39 weeks gestation of pregnancy
CPT/HCPCS: 01967; 36415; 82565; 83735; 84450; 84460; 84520; 85018; 85025; 85027; 85049; 86850; 86900; 86901; 88307; A9270; J2795; J3475; J7120

== ENCOUNTER 2024-04-17 10:17 | Outpatient (CLI) | payer MEDICAID, SELFPAY | END 2024-04-17 10:18 | disposition home or self-care (01) | LOC: NFLDREF 10:20 | PROVIDERS: Visit Provider Physician Assistant | DX: N92.0 Excessive and frequent menstruation with regular cycle (principal) | CPT/HCPCS: 84443 ==

== ENCOUNTER 2024-05-08 15:27 | Emergency (ER) | payer MEDICAID, SELFPAY ==
[2024-05-08 15:46] VITALS: BP 101/65; PULSE 76; RESP 18; TEMP 36.4; O2SAT 98; BMI 36.0
--- OUTSIDE RECORDS SUMMARY | 2024-05-08 16:18 | XMS_ITS | Clinical Summary ---
Author Organization [facility] Address [place] [address] Care Team Providers Care Neurology Technician Name Role Phone Unavailable Primary Care Provider Unavailabl e Allergies No known active allergies Medications No known medications Social History Tobacco Use Types Packs/Day Years Used Date Smoking Tobacco: Never Smokeless Tobacco: Never Tobacco Cessation:Counseling Given: Not Answered Alcohol Use Standard Drinks/Week Comments Not Currently 0 (1 standard drink = 0.6 oz pur e alcohol) Sex and Gender Information Value Date Recorded Sex Assigned at Not on file Gender Identity Not on file Sexual Orientation Not on file Obstetrics History Last Filed Vital Signs Vital Sign Reading Time Taken Comments Blood Pressure 133/69 11/12/2023 4:07 PM CDT Pulse 70 11/12/2023 4:07 PM CDT Temperature 36.1 ??C (97 ??F) 11/12/2023 4:06 PM CDT Respiratory Rate 16 11/12/2023 4:06 PM CDT Oxygen Saturation 99% 11/12/2023 4:07 PM CDT Inhaled Oxygen Concentration - - Weight - - Height - - Body Mass Index - - Plan of Treatment Health Maintenance Due Date Last Done Comments Tdap 12/21/1998 Depression screening for age 12+ 1999 HIV for age 15-65 12/21/2002 BMI (ht and wt on same day) for age 18+ 12/21/2005 Hepatitis C screening for age 18-79 12/21/2005 Tetanus booster 2007 COVID-19 vaccine series ( season) 2024 01/15/2022, 05/12/2021, 04/21/2021 Influenza for age 9-49 04/12/2024 Pap test for age 21-65 08/08/2026 , 08/08/2023, 12/02/2018, Additional history exists Pneumococcal series for age 6-64 Aged Out No longer eligible based on patient's age to complete this topic Procedures Procedure Name Priority Date/Time Associated Diagnosis Comments HPV HIGH RISK Routine 08/08/2023 1:40 PM PARAMEDIC INSTRUCTOR from Last 3 Months or Most Recently Relevant to Health Maintenance Results * HPV HIGH RISK (08/08/2023 1:40 PM PARAMEDIC INSTRUCTOR) TYPE 16 Negative Negative 08/14/2023 11:17 AM PARAMEDIC INSTRUCTOR [facility] TYPE 18 Negative Negative 08/14/2023 11:17 AM PARAMEDIC INSTRUCTOR [facility] OTHER HIGH RISK TYPES Negative Negative 08/14/2023 11:17 AM PARAMEDIC INSTRUCTOR [facility] Other (Cervical) 08/08/2023 1:40 PM PARAMEDIC INSTRUCTOR 08/11/2023 9:16 AM PARAMEDIC INSTRUCTOR Narrative [facility] - 08/14/2023 11:17 AM PARAMEDIC INSTRUCTOR HPV types 16, 18, 31, 33, 35, 39, 45, 51, 52, 56, 58, 59, 66 and 68 DNA were undetectable or below the pre-set threshold. Methodology: James Jessenia 4800 HPV Test Shantell Quiros NP MICROBIOLOGY [facility] [address] [place] [address], from Last 3 Months or Most Recently Relevant to Health Maintenance
[2024-05-08 16:34] LABS: Appearance Urine Cloudy (Clear); Bilirubin Urine Negative (Negative); Blood Urine 3+ (Negative); Color Urine Yellow (Yellow); Glucose Urine Negative (Negative); Ketones Urine Negative (Negative); Leukocyte Esterase Urine Negative (Negative); Nitrite Urine Negative (Negative); Protein Urine 1+ (Negative); Specific Gravity Urine >= 1.030 (1.000-1.030)
--- NOTE | 2024-05-08 16:41 | ED.FEMALEGU ---
HPI - Female Genitourinary General Date Seen: 05/08/24 Chief complaint: Vaginal Bleeding Stated complaint: vaginal bleeding/pain Time Seen by Provider: 05/08/24 16:01 Source: patient Mode of arrival: ambulatory Limitations: no limitations History of Present Illness HPI Narrative: Patient is a 38-year-old female presenting to emergency department for pelvic pain, foul-smelling vaginal bleeding. She states she has been having vaginal bleeding for the past month and was told she has uterine fibroids and is pending get surgery and [facility] on 05/13/2024. She has been seen the [facility] for this was recently started on Aygestin. States initially the vaginal bleeding slowed down but has become worse over the past 3 days and that is when the rest of her symptoms started. She has not had any fevers or chills. Denies nausea or vomiting. Denies lightheadedness, dizziness, chest pain, shortness of breath, headache. States all the pain is in her pelvic region. Denies having symptoms like this before. Has now passing a lot of clots she states. She was concerned about changing her symptoms and came to be evaluated. States she goes through about 5 heavily saturated pads a day. Denies any other concerns at this time Related Data Previous Rx's ?Medication ?Instructions ?Recorded norethindrone acetate 5 mg tablet 5 mg PO QDAY #8 tabs 05/04/24 Allergies Allergy/AdvReac Type Severity Reaction Status Date / Time No Known Allergies Allergy Verified 05/08/24 15:45 Review of Systems Status of ROS: Reports: 10 or more systems reviewed and unremarkable except as noted in History and below [facility] Medical History Pre-eclampsia affecting puerperium ?O14.95 - Unspecified pre-eclampsia, complicating the puerperium (ICD-10) Vaginal delivery ?O80 - Encounter for full-term uncomplicated delivery (ICD-10) Shoulder dystocia during labor and delivery, delivered ?O66.0 - Obstructed labor due to shoulder dystocia (ICD-10) Conceived by in vitro fertilization ?Z78.9 - Other specified health status (ICD-10) 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 - Female infertility of tubal origin (ICD-10) Oligomenorrhea ?N91.5 - Oligomenorrhea, unspecified (ICD-10) Female infertility associated with anovulation ?N97.0 - Female infertility associated with anovulation (ICD-10) Endometrial polyp ?N84.0 - Polyp of corpus uteri (ICD-10) Obesity (BMI 35.0-39.9 without comorbidity) ?E66.9 - Obesity, unspecified (ICD-10) Subclinical hypothyroidism ?E03.8 - Other specified hypothyroidism (ICD-10) Pyogenic granuloma of skin (2019) ?L98.0 - Pyogenic granuloma (ICD-10) Polycystic ovary syndrome ?E28.2 - Polycystic ovarian syndrome (ICD-10) Surgical History History of hysteroscopy ?Z98.890 - Other specified postprocedural states (ICD-10) Social History Narrative: Lives in [place] with daughter, sister, 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 Originally from [facility]. What is your current living situation?: I presently have a place to live Problems where you live: no known problems In the past 12 months, utilities in danger of being shut off: no In past 12 months, lack of transportation kept you from medical appts, meetings, work, or getting things needed for daily living: no In the past 12 mos, have been you worried that your food would run out before you had money to buy more?: never true In the past 12 mos, the food you bought just didn't last and you didn't have money to buy more?: never true Smoking Status: Never smoker Do you use any of these nicotine containing products: None How often do you have a drink containing alcohol: never How often do you have six or more drinks on one occasion: Never AUDIT-C Alcohol total score: 0 Non-prescribed substance use: denies use Caffeine: Yes (coffee once in a while) How often does anyone, including family, friends and others, physically hurt you: never How often does anyone, including family, friends and others, insult or talk down to you: never How often does anyone, including family, friends and others, threaten you with harm: never How often does anyone, including family, friends and others, scream or curse at you: never Little interest or pleasure in doing things: not at all Feeling down, depressed, or hopeless: not at all Are you using contraception or practicing any form of control: No Exam Narrative: Exam Narrative: Const: Well-nourished, Well-developed, in mild distress Eyes: PERRL, no conjunctival injection, and symmetrical lids HENT: Atraumatic external nose and ears. Moist mucous membranes. Neck: Symmetric, trachea midline, No thyromegaly. CVS: RRR, No murmurs or gallops. Peripheral pulses 2+ and equal in all extremities RESP: Unlabored respiratory effort. Clear to auscultation bilaterally. GI: Suprapubic/pelvic tenderness, Nondistended, No rebound or guarding. Pelvic: Moderate amount of blood in the vaginal vault, no discharge noted, tenderness noted with speculum exam MSK:Extremities w/o deformity, Normal Active ROM Skin: Warm, Dry. No rashes or lesions. Neuro: Normal Muscle tone, No focal neurological deficits. Psych: Awake, Alert, & Oriented x3. Appropriate mood and affect. Const: Vital Signs, click to edit/add: Vital Signs - 24 hr 05/08/24 15:46 Temperature 97.6 F Pulse Rate [Pulse Oximeter] 76 Respiratory Rate 18 Blood Pressure [Ri ght Upper Arm] 101/65 Pulse Oximetry 98 Oxygen Delivery Me thod Room Air Course Vital Signs Vital signs: Initial Vital Signs Temperature 97.6 F 05/08/24 15:46 Temperature Source Temporal Artery Scan 05/08/24 15:46 Pulse Rate 76 05/08/24 15:46 Pulse Rhythm Regular 05/08/24 15:46 Respiratory Rate 18 05/08/24 15:46 Blood Pressure 101/65 05/08/24 15:46 Blood Pressure Mean 77 05/08/24 15:46 Blood Pressure Position Sitting 05/08/24 15:46 Pulse Oximetry 98 05/08/24 15:46 Oxygen Delivery Method Room Air 05/08/24 15:46 Vital Signs Temperature 97.6 F 05/08/24 15:46 Pulse Rate 76 05/08/24 15:46 Respiratory Rate 18 05/08/24 15:46 Blood Pressure 101/65 05/08/24 15:46 Pulse Oximetry 98 05/08/24 15:46 Oxygen Delivery Method Room Air 05/08/24 15:46 Temperature 97.6 F 05/08/24 15:46 Pulse Rate 76 05/08/24 15:46 Respiratory Rate 18 05/08/24 15:46 Blood Pressure 101/65 05/08/24 15:46 Pulse Oximetry 98 05/08/24 15:46 Oxygen Delivery Method Room Air 05/08/24 15:46 MDM - Female Genitourinary MDM Narrative Medical decision making narrative: Patient is a 38-year-old female presenting for vaginal bleeding and pelvic pain. I did do a pelvic exam and swabs for vaginitis and GC/chlamydia. Patient had some mild tenderness with that but no severe tenderness was noted. I did do a CBC and a BMP that showed no concerning abnormalities. No clear signs of infection. Urinalysis shows some blood but again no obvious signs of infection. Vaginitis panel came back positive for on a shara. I will put her on an antifungal. I did speak to the on-call OB, Dr. Lopez, identify should be concerned about PID. She was not concerned with PID based on my description and is not think imaging is necessary. Also patient does not require immediate surgery as she is not going through a pad an hour. Was recommended to keep her on her current medications. Will give her dose of fluconazole. This is uncomplicated she is not requiring extra doses. Patient will be discharged she is agreeable to this plan. Lab Data Labs: Lab Results 05/08/24 05/08/24 05/08/24 Range/Units 16:20 16:26 16:36 WBC 5.16 (4.50-11.00) K/uL RBC 4.31 (4.00-5.20) m/uL Hgb 11.8 L (12.0-16.0) gm/dL Hct 36.6 (33.0-51.0) % MCV 85 (80-100) fL MCH 27 (26-34) pg MCHC 32 (32-36) gm/dL RDW Coeff of Doar 15.0 (11.5-15.5) % Plt Count 238 (140-440) K/uL Neut % (Auto) 55.1 (42.0-72.0) % Lymph % (Auto) 39.0 (20-44) % [place] % (Auto) 3.9 (0.0-11.0) % Eos % (Auto) 1.2 (0.0-7.0) % Baso % (Auto) 0.6 (0.0-3.0) % Neut # (Auto) 2.85 (1.7-7.0) K/uL Lymph # (Auto) 2.01 (0.90-2.90) K/uL [place] # (Auto) 0.20 (0.00-0.90) K/UL Eos # (Auto) 0.06 (0.00-0.50) K/uL Baso # (Auto) 0.03 (0.00-0.30) K/uL Abs Immat Gran (auto) 0.01 (0.00-0.30) K/uL Imm/Tot Granulo (auto) 0.2 % Sodium 140 (135-149) mmol/L Potassium 3.6 (3.6-5.1) mmol/L Chloride 106 (96-114) mmol/L Carbon Dioxide 25 (20-32) mmol/L Anion Gap 9 (7-15) mEq/L BUN 22 (5-24) mg/dL Creatinine 1.1 (0.5-1.5) mg/dL Estimated Creat Clear 66.19 Estimated GFR 67 ml/min Glucose 92 (60-115) mg/dL Calcium 9.1 (8.4-10.6) mg/dL Urine Color Yellow (Yellow) Urine Appearance Cloudy A (Clear) Urine pH 6.0 (5.0-8.5) Ur Specific [place] >= 1.030 (1.000-1.030) Urine Protein 1+ A (Negative) Urine Glucose (UA) Negative (Negative) Urine Ketones Negative (Negative) Urine Blood 3+ A (Negative) Urine Nitrite Negative (Negative) Urine Bilirubin Negative (Negative) Urine Urobilinogen 1.0 (0.2-1.0) Ur Leukocyte Esterase Negative (Negative) Urine RBC 2-5 A (0-2) Urine WBC 25-50 A (0-5) Ur Squamous Epith Cells None (None-Few) Urine Bacteria None (None) Vaginal Bacterial Vaginosis Negative (Negative) Vaginal Shara species DETECTED A (No Detected) Vag C. glabrata/krusei NOT DETECTED (No Detected) Vag T. vaginalis NOT DETECTED (No Detected) Discharge Plan Discharge Clinical Impression: Dysfunctional uterine bleeding, Candidal vulvovaginitis Patient Disposition: Home, Self-Care Condition: Stable Instructions: Abnormal (Dysfunctional) Uterine Bleeding (ED), Yeast Infection (ED) Additional Instructions: Continue taking previously prescribed medications as directed. I did give you a dose already for your yeast infection and further medication is not necessary at this time. If he started bleeding through 1 pad per hour return for re-evaluation. At this time though keep your current plan for surgery next week. Prescriptions: No Action norethindrone acetate 5 mg tablet 5 mg PO QDAY Qty: 8 0RF Rx Instructions: 5mg daily Follow Up/Referrals: Provider,Not a Local [Primary Care Provider] - Stand Alone Forms: [employer] Info Instructions
[2024-05-08 17:00] LABS: WBC Urine 25-50 (0-5)
[2024-05-08 17:01] LABS: Basophils Absolute Auto 0.03 K/uL (0.00-0.30); Basophils Percent Auto 0.6 % (0.0-3.0); Eosinophils Absolute Auto 0.06 K/uL (0.00-0.50); Eosinophils Percent Auto 1.2 % (0.0-7.0); Hematocrit 36.6 % (33.0-51.0); Hemoglobin* 11.8 gm/dL (12.0-16.0); Immature Granulocytes Abs Auto 0.01 K/uL (0.00-0.30); Immature Granulocytes Pct Auto 0.2 %; Lymphocytes Absolute Auto 2.01 K/uL (0.90-2.90); Mean Corpuscular HGB Conc 32 gm/dL (32-36); Mean Corpuscular Hemoglobin 27 pg (26-34); Mean Corpuscular Volume 85 fL (80-100); Monocytes Percent Auto 3.9 % (0.0-11.0); Neutrophils Absolute Auto 2.85 K/uL (1.7-7.0); Neutrophils Percent Auto 55.1 % (42.0-72.0); Platelet Count* 238 K/uL (140-440); Red Blood Count 4.31 m/uL (4.00-5.20); White Blood Count* 5.16 K/uL (4.50-11.00)
[2024-05-08 17:02] LABS: Slide Review Reflex No
[2024-05-08 17:14] LABS: Chloride* 106 mmol/L (96-114); Potassium* 3.6 mmol/L (3.6-5.1); Sodium* 140 mmol/L (135-149)
[2024-05-08 17:17] LABS: Anion Gap 9 mEq/L (7-15); Blood Urea Nitrogen* 22 mg/dL (5-24); Carbon Dioxide* 25 mmol/L (20-32); Creatinine* 1.1 mg/dL (0.5-1.5); Est. Creatinine Clearance* 66.19; Estimated Glomerular Filt Rate 67 ml/min
[2024-05-08 17:18] LABS: Calcium* 9.1 mg/dL (8.4-10.6); Glucose* 92 mg/dL (60-115)
[2024-05-08 17:31] LABS: Bacterial Vaginosis* Negative (Negative); Candida glab/krus NOT DETECTED (No Detected); Candida species DETECTED (No Detected); Trichomonas vaginalis NOT DETECTED (No Detected)
[2024-05-08] MEDS: FLUCONAZOLE 150 MG TABLET PO (18:00)
[2024-05-08 18:02] LABS: Chlamydia DNA Amplified* NOT DETECTED (No Detected); GC DNA Amplified* NOT DETECTED (No Detected)
[2024-05-09 12:51] LABS: Ur HCG Qualitative* Negative (Negative)
== END 2024-05-08 18:14 | disposition home or self-care (01) ==
PROVIDERS: Emergency Provider Student in an Organized Health Care Education/Training Program
DX: N93.9 Abnormal uterine and vaginal bleeding, unspecified (principal); B37.31 Acute candidiasis of vulva and vagina
CPT/HCPCS: 36415; 80048; 81001; 81025; 81513; 85025; 87086; 87481; 87491; 87591; 87661; 99283; 99284; A9270

== ENCOUNTER 2024-05-13 06:40 | Day surgery (SDC) | payer MEDICAID, SELFPAY ==
--- OUTSIDE RECORDS SUMMARY | 2024-05-13 06:41 | XMS_ITS | Clinical Summary ---
Author Organization [employer] [facility] Address [place], [place] [address] Care Team Providers Care Student Assistant Name Role Phone Unavailable Primary Care Provider [...] HPV HIGH RISK Routine 08/08/2023 1:40 PM DIRECTOR LOSS PREVENTION from Last 3 Months or Most Recently Relevant to Health Maintenance Results * HPV HIGH RISK (08/08/2023 1:40 PM DIRECTOR LOSS PREVENTION) TYPE 16 Negative Negative 08/14/2023 11:17 AM DIRECTOR LOSS PREVENTION [facility] TYPE 18 Negative Negative 08/14/2023 11:17 AM DIRECTOR LOSS PREVENTION [facility] OTHER HIGH RISK TYPES Negative Negative 08/14/2023 11:17 AM DIRECTOR LOSS PREVENTION [facility] Other (Cervical) 08/08/2023 1:40 PM DIRECTOR LOSS PREVENTION 08/11/2023 9:16 AM DIRECTOR LOSS PREVENTION Narrative [facility] - 08/14/2023 11:17 AM DIRECTOR LOSS PREVENTION HPV types 16, 18, 31, 33, 35, 39, 45, 51, 52, 56, 58, 59, 66 and 68 DNA were undetectable or below the pre-set threshold. Methodology: James Jessenia 4800 HPV Test Shantell Quiros NP MICROBIOLOGY [facility] [address] [place] [address], from Last 3 Months or Most Recently Relevant to Health Maintenance
[2024-05-13 07:01] VITALS: BMI 41.1
[2024-05-13 07:07] VITALS: BP 109/74; PULSE 79; RESP 16; TEMP 36.5; O2SAT 98
[2024-05-13 07:20] LABS: Hemoglobin* 11.8 gm/dL (12.0-16.0)
[2024-05-13] MEDS: SODIUM CHLORIDE 0.9 % (FLUSH) 10 ML SYRINGE IVF (07:20)
[2024-05-13] MEDS: LACTATED RINGERS 1000 ML 1,000 ML 100 ML IV (07:20)
[2024-05-13 07:23] LABS: Ur HCG Qualitative* Negative (Negative)
[2024-05-13 07:44] LABS: Est. Creatinine Clearance* 61.51; Estimated Glomerular Filt Rate 75 ml/min
--- NOTE | 2024-05-13 07:45 | W.PM.H&PU ---
History & Physical Update History & Physical Update H&P Updates: Since we last spoke, she presented to the ED for vaginal/pelvic pain. She was diagnosed with candidiasis and treated. Since then she's had no pain. She's has not bleed for 2 days. Has been over a month since last intercourse. She will be pursuing IVF with [facility] after recovery from this procedure.
--- NOTE | 2024-05-13 08:58 | W.PM.GYNPROC ---
Procedure Note Time Seen by Provider: 08:59 Date of procedure: 05/13/24 Will [facility] bill your pro fee for this procedure?: Yes Pre-op diagnosis: 1. Abnormal uterine bleeding - polyps 2. Infertility Post-op diagnosis: Same Procedure: 1. Hysteroscopy 2. Dilation and curettage 3. Polypectomy Anesthesia: MAC and local Complications: None Surgeon: Michelle Espinoza MD IV fluids (mL): 700 Urine Output (mL): 85 Pathology: specimen obtained, sent to pathology (Endometrial curetting/polyps ) Condition: stable Disposition: PACU Procedure Description: Estimated blood loss: <5 cc Findings: Exam under anesthesia: Cervix palpates normal with small amount of menstrual blood extruding. Uterus: anteverted position, 6 week size, mobile, without nodularity/masses palpable. Adnexa were without fullness or nodularity. On hysteroscopy: Thickened endometrium with small polyps near left tubal ostia and posterior wall of uterus. Normal bilateral tubal ostia. Procedure: Marilia was taken to the operating where conscious sedation was found to be adequate. She was placed in the dorsal lithotomy position. An exam under anesthesia was performed with findings stated above. She was then prepped and draped in normal sterile manner. A bivalve metal speculum was placed in the vaginal canal. The cervix and vaginal canal appear normal. A paracervical block was placed using 1% lidocaine with epinephrine: 5 mL injected at the 4 and 8 o'clock positions on the cervix. The anterior lip of the cervix was then grasped with a long tenaculum. The cervix was dilated to Hegar 6. The uterus sounded to 7 cm. The hysteroscope advanced into the uterus and a diagnostic hysteroscopy was performed with findings stated above. Normal saline was used as the insufflation medium. Soft tissue shaver was used to perform polypectomy and global curetting. The uterus and documented a normal appearing uterine cavity at the end of the procedure. Fluid deficit at the end of the procedure 145mL. Total fluid: 1610 mL The hysteroscope and tenaculum clamp were removed from the uterus and cervix. Excellent hemostasis noted. Nothing was used for hemostasis. The patient tolerated the procedure well. Sponge, lap and instruments counts were correct at the end of the procedure. The patient was awakened from anesthesia and taken to the recovery area in stable condition. Surgical debrief and specimen review performed at the end of the procedure.
--- NOTE | 2024-05-13 09:07 | W.ANESCHARGE ---
Anesthesia Charges Start Date/Time Anesthesia Start Date: 05/13/24 Anesthesia Start Time: 08:20 Stop Date/Time Anesthesia Stop Date: 05/13/24 Anesthesia Stop Time: 09:08
[2024-05-13 09:10] VITALS: BP 111/82; PULSE 63; RESP 16; TEMP 36.1; O2SAT 98
--- NOTE | 2024-05-13 09:15 | SUR.OPER ---
deficit= 145 and urine out=85
[2024-05-13 09:25] VITALS: BP 112/85; PULSE 62; RESP 16; O2SAT 98
[2024-05-13 09:40] VITALS: BP 108/76; PULSE 68; RESP 16; O2SAT 98
--- NOTE | 2024-05-13 10:58 | W.ANESCHARGE ---
Anesthesia Charges Start Date/Time Anesthesia Start Date: 05/13/24 Anesthesia Start Time: 08:20 Stop Date/Time Anesthesia Stop Date: 05/13/24 Anesthesia Stop Time: 09:08
== END 2024-05-13 10:12 | disposition home or self-care (01) ==
PROVIDERS: Visit Provider Obstetrics & Gynecology
PROC: 0UDB8ZZ Extraction of Endometrium, Via Natural or Artificial Opening Endoscopic (ICD-10-PCS; CPT 58558; principal; 2024-05-13 08:00)
DX: N93.8 Other specified abnormal uterine and vaginal bleeding (principal); N84.0 Polyp of corpus uteri; N97.9 Female infertility, unspecified; R10.2 Pelvic and perineal pain
CPT/HCPCS: 58558; 00952; 36415; 81025; 82565; 85018; 86850; 86900; 86901; 88305; C1782; J1100; J2250; J2405; J2704; J3010; J7120

== ENCOUNTER 2024-06-22 12:03 | Outpatient (CLI) | payer MEDICAID, SELFPAY ==
--- OUTSIDE RECORDS SUMMARY | 2024-06-22 12:09 | XMS_ITS | Clinical Summary ---
Author Organization [employer] [facility] [employer] [facility] Address [place], [place] [address] Care Team Providers Care Plc Technician Name Role Phone Unavailable Primary Care [...] HPV HIGH RISK Routine 08/08/2023 1:40 PM INTEGRATED CIRCUIT FABRICATOR from Last 3 Months or Most Recently Relevant to Health Maintenance Results * HPV HIGH RISK (08/08/2023 1:40 PM INTEGRATED CIRCUIT FABRICATOR) TYPE 16 Negative Negative 08/14/2023 11:17 AM INTEGRATED CIRCUIT FABRICATOR [facility] TYPE 18 Negative Negative 08/14/2023 11:17 AM INTEGRATED CIRCUIT FABRICATOR [facility] OTHER HIGH RISK TYPES Negative Negative 08/14/2023 11:17 AM INTEGRATED CIRCUIT FABRICATOR [facility] Other (Cervical) 08/08/2023 1:40 PM INTEGRATED CIRCUIT FABRICATOR 08/11/2023 9:16 AM INTEGRATED CIRCUIT FABRICATOR Narrative [facility] - 08/14/2023 11:17 AM INTEGRATED CIRCUIT FABRICATOR HPV types 16, 18, 31, 33, 35, 39, 45, 51, 52, 56, 58, 59, 66 and 68 DNA were undetectable or below the pre-set threshold. Methodology: James Jessenia 4800 HPV Test Shantell Quiros NP MICROBIOLOGY [facility] [address] [place] [address], from Last 3 Months or Most Recently Relevant to Health Maintenance
== END 2024-06-22 12:04 | disposition home or self-care (01) ==
PROVIDERS: Visit Provider Physician Assistant
DX: B37.31 Acute candidiasis of vulva and vagina (principal)
CPT/HCPCS: 87102

== ENCOUNTER 2024-11-05 07:53 | Emergency (ER) | payer MEDICAID, SELFPAY ==
--- OUTSIDE RECORDS SUMMARY | 2024-11-05 07:56 | XMS_ITS | Clinical Summary ---
Author Organization [facility] Address [address] [place] [id number] Care Team Providers Care Stain Maker Name Role Phone No Ref-Primary, Physician Primary Care Provider Allergies No known active allergies Medications Vit-Fe Fumarate-FA ( MULTIVITAMIN W/IRON) 27-0.8 MG tablet Take 1 tablet by mouth daily Active aspirin (ASA) 81 MG chewable tablet Take 81 mg by mouth daily Active progesterone, in sesame oil, 50 MG/ML injection Inject into the muscle daily Active Social History Tobacco Use Types Packs/Day Years Used Date Smoking Tobacco: Never Smokeless Tobacco: Never Tobacco Cessation:Counseling Given: Not Answered Alcohol Use Standard Drinks/Week Comments Never 0 (1 standard drink = 0.6 oz pur e alcohol) PHQ-2 Answer Date Recorded PHQ-2 Score 0 11/26/2022 Adolescent Education Answer Date Record ed Getting School Help Needed Not on file 05/03 Comments No Sex and Gender Information Value Date Recorded Sex Assigned at Not on file Legal Sex Female 4:07 PM CDT Gender Identity Not on file Sexual Orientation Not on file 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 file Not on file Not on file Last Filed Vital Signs Vital Sign Reading Time Taken Comments Blood Pressure - - Pulse - - Temperature - - Respiratory Rate - - Oxygen Saturation - - Inhaled Oxygen Concentration - - Weight - - Height 157.5 cm (5' 2) 11/26/2022 11:20 AM CDT Body Mass Index - - Plan of Treatment Health Maintenance Due Date Last Done Comments ADVANCE CARE PLANNING 1987 ANNUAL REVIEW OF HM ORDERS 1987 DIABETES SCREENING 1987 YEARLY PREVENTIVE VISIT 12/21/1990 HIV SCREENING 12/21/2002 HEPATITIS C SCREENING 12/21/2005 HEPATITIS B IMMUNIZATION (1 of 3 - 19+ 3-dose series) 12/21/2006 PAP 12/21/2008 COVID-19 Vaccine ( - season) 2024 01/15/2022, 05/12/2021, 04/21/2021 INFLUENZA VACCINE (#1) 2024 , 08/08/2020, 06/16/2019, Additional history exists PHQ-2 (once per calendar year) 2024 11/26/2022 DTAP/TDAP/TD IMMUNIZATION (2 - Td or Tdap) 08/16/2030 08/16/2020 ZOSTER IMMUNIZATION (1 of 2) 12/21/2037 HPV IMMUNIZATION Aged Out No longer e ligible based on patient's age to complete this topic MENINGITIS IMMUNIZATION Aged Out No l onger eligible based on patient's age to complete this topic Pneumococcal Vaccine: Pediatrics (0 to 5 Years) and At-Risk Patients (6 to 49 Years) Aged Out No longer eligible based on patient's age to complete this topic [facility] Stain Maker Relationship Specialty Start Date End Date No Ref-Primary, Physician PCP - General 11/14/22
--- NOTE | 2024-11-05 07:58 | ED_ITS ---
HPI - General Adult General Date Seen: 11/05/24 Chief complaint: Urogenital Problems, Female Stated complaint: 8 weeks , having pain Time Seen by Provider: 11/05/24 07:57 History of Present Illness HPI narrative: 38 yo F with h/o , uterine polyps associated with prolonged uterine bleeding in 2023, , hysteroscopy with polypectomy 05/13/24 , PCOS. Patient underwent IVF to conceive her current . She has been having intermittent low back pain and also some vaginal discharge. She attempted to get into the Ob clinic for a checkup this morning, but was told to come to the emergency department. She underwent IVF fertilization and a clinic in [place] ([facility]). She had a clinic visit with them most recently on October 22, 2 weeks ago and had ultrasound confirming a single IUP. She reports that there was no concern for twins or heterotopic . Apparently her blood work and hormone levels were reassuring. Her estrogen levels were adequate so her fertility doctors told her she could stop taking her progesterone and estrogen supplements on November 04, so she stopped as directed 2 days ago. Patient notes that last week she started having some yellowish vaginal discharge. She has had multiple previous yeast infections and suspects the same. No vaginal bleeding. She has been having some pain in her low back. No anterior abdominal pain or pelvic pain. No lightheadedness or weakness. No fever. Urination has been normal. Per BUSINESS PERFORMANCE MANAGER notes on 04/17/24 HGB was 12.2 Per scanned report, B, Rh + Related Data Previous Rx's ?Medication ?Instructions ?Recorded acetaminophen 500 mg tablet 1,000 mg (2 x 500 mg) PO Q6H PRN 05/13/24 Pain 14 days #30 tabs fluconazole 150 mg tablet 150 mg PO Q3D #3 tabs 09/03/24 clotrimazole 1 % topical cream 1 applic topical BID 5 days #30 11/05/24 grams ondansetron 4 mg disintegrating 4 mg PO Q8H PRN nausea and 11/05/24 tablet vomiting #10 tabs Allergies Allergy/AdvReac Type Severity Reaction Status Date / Time No Known Allergies Allergy Verified 09/03/24 08:56 PFSH PFSH Medical History Pre-eclampsia affecting puerperium ?O14.95 - Unspecified pre-eclampsia, complicating the puerperium (ICD-10) Vaginal delivery ?O80 - Encounter for full-term uncomplicated delivery (ICD-10) Shoulder dystocia during labor and delivery, delivered ?O66.0 - Obstructed labor due to shoulder dystocia (ICD-10) Conceived by in vitro fertilization ?Z78.9 - Other specified health status (ICD-10) 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 - Female infertility of tubal origin (ICD-10) Oligomenorrhea ?N91.5 - Oligomenorrhea, unspecified (ICD-10) Female infertility associated with anovulation ?N97.0 - Female infertility associated with anovulation (ICD-10) Endometrial polyp ?N84.0 - Polyp of corpus uteri (ICD-10) Obesity (BMI 35.0-39.9 without comorbidity) ?E66.9 - Obesity, unspecified (ICD-10) Subclinical hypothyroidism ?E03.8 - Other specified hypothyroidism (ICD-10) Pyogenic granuloma of skin (2020) ?L98.0 - Pyogenic granuloma (ICD-10) Polycystic ovary syndrome ?E28.2 - Polycystic ovarian syndrome (ICD-10) Surgical History History of hysteroscopy ?Z98.890 - Other specified postprocedural states (ICD-10) Social History Narrative: Lives in [place] with daughter, sister, mother and . assistant press operator She doesn't smoke, ETOH, recreational drug use. Originally from [facility]. What is your current living situation?: I presently have a place to live Problems where you live: no known problems In the past 12 months, utilities in danger of being shut off: no In past 12 months, lack of transportation kept you from medical appts, meetings, work, or getting things needed for daily living: no In the past 12 mos, have been you worried that your food would run out before you had money to buy more?: never true In the past 12 mos, the food you bought just didn't last and you didn't have money to buy more?: never true Smoking Status: Never smoker Do you use any of these nicotine containing products: None How often do you have a drink containing alcohol: never How often do you have six or more drinks on one occasion: Never AUDIT-C Alcohol total score: 0 Non-prescribed substance use: denies use Caffeine: Yes (coffee once in a while) How often does anyone, including family, friends and others, physically hurt you : never How often does anyone, including family, friends and others, insult or talk down to you: never How often does anyone, including family, friends and others, threaten you with harm: never How often does anyone, including family, friends and others, scream or curse at you: never Are you using contraception or practicing any form of control: No Exam Narrative: Exam Narrative: Constitutional: Appears well-developed, heavyset, and well-nourished. Alert. Conversant. Very polite. Non toxic. HENT: Head: Atraumatic. Nose: Nose normal. Mouth/Throat: Oral mucosa is clear and moist. no trismus. Pharynx normal. Tonsils symmetric. No tonsillar enlargement, erythema, or exudate. Eyes: Conjunctivae normal. EOM normal. Pupils equal, round, and reactive to light. No scleral icterus. Neck: Normal range of motion. Neck supple. No tracheal deviation present. Cardiovascular: Normal rate, regular rhythm. No gallop. No friction rub. No murmur heard. Symmetric radial artery pulses Pulmonary/Chest: Effort normal. No stridor. No respiratory distress. No wheezes. No rales. No rhonchi . No tenderness. Abdominal: Soft. Bowel sounds normal. No distension. No mass. No tenderness. No rebound. No guarding. No anterior abdominal tenderness or pelvic pelvic tenderness Musculoskeletal: Endorses pain low in her low back across the posterior pelvis. No CVA tenderness. No midline lumbar spine pain. Bony pelvis is stable and nontender. RUE: Normal range of motion. No tenderness. No deformity LUE: Normal range of motion. No tenderness. No deformity RLE: Normal range of motion. No edema. No tenderness. No deformity LLE: Normal range of motion. No edema. No tenderness. No deformity Pelvic: Performed with female basketball scout. Normal external genitalia. Normal vaginal mucosa. Copious thick yellow vaginal discharge. Cervix closed. No bleeding. No cervicitis. Neurological: Alert and oriented to person, place, and time. Normal strength. CN II-VII intact. No sensory deficit. GCS eye subscore is 4. GCS verbal subscore is 5. GCS motor subscore is 6. Normal coordination Skin: Skin is warm and dry. No rash noted. No pallor. Normal capillary refill. Psychiatric: Normal mood. Normal affect. Const: Vital Signs, click to edit/add: Vital Signs - 24 hr 11/05/24 07:59 11/05/24 09:33 Temperature 98.1 F 98.1 F Pulse Rate [Pulse Oximeter] 76 75 Respiratory Rate 18 18 [facility] 114/77 106/76 Pulse Oximetry 100 100 Oxygen Delivery Me thod Room Air Course Course ED Course: History and physical performed in ER bed 7. Initially declines offered nausea medications. Reevaluation(s) Reevaluation #1: Recheck-pelvic exam performed. No request nausea medication-ordered. Reevaluation #2: Recheck-patient requesting discharge. Still waiting on pelvic exam swabs. We will call the patient. Vital Signs Vital signs: Initial Vital Signs Temperature 98.1 F 11/05/24 07:59 Temperature Source Temporal Artery Scan 11/05/24 07:59 Pulse Rate 76 11/05/24 07:59 Respiratory Rate 18 11/05/24 07:59 Blood Pressure 114/77 11/05/24 07:59 Blood Pressure Mean 89 11/05/24 07:59 Pulse Oximetry 100 11/05/24 07:59 Vital Signs Temperature 98.1 F 11/05/24 07:59 Pulse Rate 76 11/05/24 07:59 Respiratory Rate 18 11/05/24 07:59 Blood Pressure 114/77 11/05/24 07:59 Pulse Oximetry 100 11/05/24 07:59 Temperature 98.1 F 11/05/24 09:33 Pulse Rate 75 11/05/24 09:33 Respiratory Rate 18 11/05/24 09:33 Blood Pressure 106/76 11/05/24 09:33 Pulse Oximetry 100 11/05/24 09:33 Oxygen Delivery Method Room Air 11/05/24 09:33 Medications Administered Medications: Discontinued Medications Generic Name Dose Route Start Last Admin Trade Name Freq PRN Reason Stop Dose Admin Ondansetron HCl 4 mg 11/05/24 09:24 11/05/24 09:31 Ondansetron Odt 4 Mg Tab PO 11/05/24 09:25 4 mg ONCE ONE Administration Medical Decision Making MDM Narrative Medical decision making narrative: Pleasant 38-year-old female who is G3, P2, currently a weeks gestation with IVF . She has already had outpatient ultrasound which confirmed a Storm IUP. She is presenting with a couple of weeks of low back pain and also several days of yellowish vaginal discharge. She also has history of frequent yeast infections. Fortunately she is not having any vaginal bleeding With her low back pain concern is for possible complications such as tubal , heterotopic , early miscarriage. Pelvic ultrasound is obtained and shows a viable IUP. There is a small subchorionic hemorrhage adjacent to the noted on today's imaging. Discussed this with the patient. She understands the need for follow-up in the clinic with the field cane scaler. Also discussed with Dr. Mena who agrees that no other specific management is necessary at this time. Overall abdominal exa is nontender. I have very low suspicion for any intra- abdominal pathology such as appendicitis, diverticulitis or other acute surgical pathology. At this point would hold off on CT or MR imaging. Vaginal swab is positive for yeast. Will treat this with topical (intravaginal) clotrimazole cream 1% b.i.d. for 5 days, discussed with OBGYN who recommends topical treatment, rather than systemic. The for follow-up. Other vaginitis pathogens are negative. Gonorrhea chlamydia negative. Lab Data Labs: Lab Results 11/05/24 11/05/24 Range/Units 08:29 09:25 WBC 4.47 L (4.50-11.00) K/uL RBC 4.66 (4.00-5.20) m/uL Hgb 13.0 (12.0-16.0) gm/dL Hct 39.8 (33.0-51.0) % MCV 85 (80-100) fL MCH 28 (26-34) pg MCHC 33 (32-36) gm/dL RDW Coeff of Dora 13.8 (11.5-15.5) % Plt Count 227 (140-440) K/uL Neut % (Auto) 65.3 (42.0-72.0) % Lymph % (Auto) 30.0 (20-44) % [place] % (Auto) 3.4 (0.0-11.0) % Eos % (Auto) 0.9 (0.0-7.0) % Baso % (Auto) 0.4 (0.0-3.0) % Neut # (Auto) 2.90 (1.7-7.0) K/uL Lymph # (Auto) 1.30 (0.90-2.90) K/uL [place] # (Auto) 0.20 (0.00-0.90) K/UL Eos # (Auto) 0.00 (0.00-0.50) K/uL Baso # (Auto) 0.00 (0.00-0.30) K/uL Abs Immat Gran (auto) 0.00 (0.00-0.30) K/uL Imm/Tot Granulo (auto) 0.0 % HCG, Quant 864940.00 mIU/mL Vaginal Bacterial Vaginosis Negative (Negative) Vaginal Shara species DETECTED A (No Detected) Vag C. glabrata/krusei NOT DETECTED (No Detected) Vag T. vaginalis NOT DETECTED (No Detected) C.trachomatis Ampl DNA NOT DETECTED (No Detected) N.gonorrhoeae Ampl DNA NOT DETECTED (No Detected) Imaging Data US pelvic: Attestation: I have reviewed the pertinent imaging results. My impression: Preliminary report from technical services librarian is that there is a viable Storm IUP with small subchorionic hemorrhage. Radiologist's impression: Impression: 1. Single living intrauterine at 8 weeks and 6 days with an ultrasound estimated date of delivery of 06/11/2025. 2. heart rate is 180 beats per minute 3. Subchorionic hemorrhage noted measuring 2.4 x 1.9 x 0.5 centimeters 4. No myometrial mass. No adnexal mass. No ovarian mass. Normal ovarian Doppler. Discharge Plan Discharge Clinical Impression: Subchorionic hemorrhage, Intrauterine , Nausea, Vaginal yeast infection Patient Disposition: Home, Self-Care Condition: Stable Instructions: (ED), Subchorionic Hemorrhage (ED) Additional Instructions: As we discussed, your ultrasound looks reassuring. Your baby is still viable. Of note, there is a small area of bleeding adjacent to the . This usually will not cause any problems. If you notice any worsening pain, any vaginal bleeding or spotting, please call your OB doctor or return to the ER right away to be rechecked. Use the prescription Zofran as needed for nausea. Please follow-up with your OB doctor in clinic next week, even if you are getting better. If you have any worsening symptoms, please see your OB doctor or come back to the emergency room right away. The results of your vaginal swab are not back yet. We will call you later today when the results are back. Prescriptions: New ondansetron 4 mg tablet,disintegrating 4 mg PO Q8H PRN (Reason: nausea and vomiting) Qty: 10 0RF clotrimazole 1 % cream 1 applic topical BID 5 Days Qty: 30 0RF No Action fluconazole 150 mg tablet 150 mg PO Q3D Qty: 3 0RF acetaminophen 500 mg Tablet 1,000 mg PO Q6H PRN (Reason: Pain) 14 Days Qty: 30 0RF Follow Up/Referrals: Provider,Not a Local [Primary Care Provider] - Stand Alone Forms: Svpp[facility] Info Instructions
[2024-11-05 07:59] VITALS: BP 114/77; PULSE 76; RESP 18; TEMP 36.7; O2SAT 100; BMI 41.5
--- NOTE | 2024-11-05 08:07 | CRLHL7_ITS ---
For Patients: As a result of the Century Cures Act, medical imaging exams and procedure reports are released immediately into your electronic medical record. You may view this report before your referring provider. If you have questions, please contact your health care provider. Indication: Eight weeks . IVF. Back pain. Vaginal discharge. Technique: Ultrasound examination of the pelvis was performed. The study was performed transvaginally. Grayscale imaging was provided as well as color and spectral interrogation of the ovaries and M-mode Doppler for quantifying heart rate. Comparison: None Findings: There is a single living intrauterine . A crown-rump length measurement of 2.2 centimeters was obtained yielding 8 weeks and 6 days and an ultrasound estimated date of delivery of 06/11/2025. heart rate is 180 beats per minute. A normal-appearing gestational sac and yolk sac was noted. No myometrial mass. The ovaries appear normal. No ovarian mass. No adnexal mass. The right ovary measures 4.1 x 2.6 x 3.1 centimeters and the left ovary measures 4.1 x 2.9 x 3.3 centimeters. Normal ovarian Doppler. No significant free fluid. A subchorionic hemorrhage is noted anterior to the gestational sac measuring 2.4 x 1.9 x 0.5 centimeters. Impression: 1. Single living intrauterine at 8 weeks and 6 days with an ultrasound estimated date of delivery of 06/11/2025. 2. heart rate is 180 beats per minute 3. Subchorionic hemorrhage noted measuring 2.4 x 1.9 x 0.5 centimeters 4. No myometrial mass. No adnexal mass. No ovarian mass. Normal ovarian Doppler. Dictated by Sumanth Hester MD @ 11/05/2024 9:19:14 AM (Electronically Signed)
[2024-11-05 08:37] LABS: Basophils Percent Auto 0.4 % (0.0-3.0); Eosinophils Percent Auto 0.9 % (0.0-7.0); Hematocrit* 39.8 % (33.0-51.0); Mean Corpuscular HGB Conc 33 gm/dL (32-36); Mean Corpuscular Hemoglobin 28 pg (26-34); Mean Corpuscular Volume 85 fL (80-100); Monocytes Percent Auto 3.4 % (0.0-11.0); Neutrophils Percent Auto 65.3 % (42.0-72.0); Platelet Count* 227 K/uL (140-440); RDW Coefficient of Variation % 13.8 % (11.5-15.5); Red Blood Count* 4.66 m/uL (4.00-5.20); White Blood Count* 4.47 K/uL (4.50-11.00)
[2024-11-05 08:39] LABS: Slide Review Reflex No
--- OUTSIDE RECORDS SUMMARY | 2024-11-05 08:39 | XMS_ITS | Clinical Summary ---
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 Filling Mixer Relationship Specialty Start Date End Date No Ref-Primary, Physician PCP - General 11/14/22
[2024-11-05] MEDS: ONDANSETRON ODT 4 MG TAB PO (09:31)
[2024-11-05 09:33] VITALS: BP 106/76; PULSE 75; RESP 18; TEMP 36.7; O2SAT 100
[2024-11-05 10:36] LABS: Bacterial Vaginosis* Negative (Negative); Candida glab/krus NOT DETECTED (No Detected); Candida species DETECTED (No Detected); Trichomonas vaginalis NOT DETECTED (No Detected)
[2024-11-05 11:07] LABS: Chlamydia DNA Amplified* NOT DETECTED (No Detected); GC DNA Amplified* NOT DETECTED (No Detected)
== END 2024-11-05 10:36 | disposition home or self-care (01) ==
PROVIDERS: Emergency Provider Emergency Medicine
DX: O46.8X1 Other antepartum hemorrhage, first trimester (principal); Z3A.08 8 weeks gestation of pregnancy; B37.31 Acute candidiasis of vulva and vagina
CPT/HCPCS: 36415; 76817; 81513; 84702; 85025; 87481; 87491; 87591; 87661; 93976; 99284; A9270

== ENCOUNTER 2024-11-17 08:51 | Outpatient (CLI) | payer MEDICAID, SELFPAY ==
--- NOTE | 2024-11-17 09:15 | CRLHL7_ITS ---
For Patients: As a result of the Cures Act, medical imaging exams and procedure reports are released immediately into your electronic medical record. You may view this report before your referring provider. If you have questions, please contact your health care provider. OB ULTRASOUND INDICATION: Dating and viability. TECHNIQUE: Real time grayscale imaging of the fetus was performed. Transvaginal. LMP: IVF. BUBBA by LMP: 06/16/2025. GA: 9 w, 6 d. Previous US: Yes 11/05/2024. BUBBA by US: 06/11/2025. CRL: 3.7 cm. 10 w 4 d. BUBBA: 06/11/2025. FHR: 167 BPM. Gestational sac: 4.2 cm. Yolk sac: N/V (previously visualized). Right ovary: 3.5 x 3.4 x 2.5 cm. Left ovary: 2.9 x 2.6 x 2.8 cm. IMPRESSION: 1. Single living intrauterine with sonographic gestational age 10 weeks 4 days and sonographic due date 06/11/2025. 2. Likely physiologic mid gut herniation. Follow-up recommended in two weeks. Jorgito Nassar M.D. Diagnostic Radiologist [email or web address] MARISEL/minda perla/Dictated by: Jorgito Nassar MD @ 11/17/2024 12:31:00 PM (Electronically Signed)
== END 2024-11-17 08:52 | disposition home or self-care (01) ==
PROVIDERS: Visit Provider Physician Assistant
DX: Z34.91 Encounter for supervision of normal pregnancy, unspecified, first trimester (principal); Z3A.09 9 weeks gestation of pregnancy
CPT/HCPCS: 76817; 83021; 86592; 86703; 86704; 86706; 86762; 86787; 86803; 86850; 86870; 86880; 86900; 86901; 87086; 87340

== ENCOUNTER 2024-11-17 10:22 | Outpatient (CLI) | payer OTHER, SELFPAY | END 2024-11-17 10:23 | disposition home or self-care (01) | PROVIDERS: Visit Provider Physician Assistant | DX: O09.521 Supervision of elderly multigravida, first trimester (principal); O09.811 Supervision of pregnancy resulting from assisted reproductive technology, first trimester; O99.211 Obesity complicating pregnancy, first trimester; Z3A.09 9 weeks gestation of pregnancy | CPT/HCPCS: 83020; 83021; 85660; 86592; 86703; 86704; 86706; 86762; 86787; 86803; 86850; 86870; 86880; 86900; 86901; 87086; 87340 ==

== ENCOUNTER 2024-12-03 11:13 | Outpatient (CLI) | payer MEDICAID, SELFPAY ==
--- NOTE | 2024-12-03 11:15 | CRLHL7_ITS ---
For Patients: As a result of the Cures Act, medical imaging exams and procedure reports are released immediately into your electronic medical record. You may view this report before your referring provider. If you have questions, please contact your health care provider. OB ULTRASOUND LESS THAN 14 WEEKS, 12/03/2024 CLINICAL HISTORY: Follow-up for mid gut protrusion. COMPARISON: 11/17/2024. TECHNIQUE: Real time wynn scale imaging of the fetus was performed transabdominal. FINDINGS: LMP: IVF. BUBBA by LMP: 06/16/2025. GA: 12 weeks 1 day. BUBBA by US: 06/11/2025. GA: 10 weeks 4 days. CRL: 6.6 cm, 12 weeks 6 days. BUBBA 06/11/2025. FHR: 154 bpm. GEST SAC: 6.7 cm, appears within normal limits. YOLK SAC: N/V posterior placenta. RIGHT OV: 3.4 x 2.2 x 2.6 cm. LEFT OV: 3.0 x 2.9 x 3.1 cm. IMPRESSION: 1. Single living intrauterine with sonographic gestational age 12 weeks 6 days and sonographic due date 06/11/2025. 2. Resolution of previously noted abdominal wall finding. Jorgito Nassar M.D. Diagnostic Radiologist [email or web address] Transcribed: 12:22 pm DW/Dictated by: Jorgito Nassar MD @ 12/03/2024 12:05:00 PM (Electronically Signed)
== END 2024-12-03 11:14 | disposition home or self-care (01) ==
LOC: US 11:13
PROVIDERS: Visit Provider Physician Assistant
DX: O09.521 Supervision of elderly multigravida, first trimester (principal); O09.811 Supervision of pregnancy resulting from assisted reproductive technology, first trimester; Z3A.12 12 weeks gestation of pregnancy
CPT/HCPCS: 76816

== ENCOUNTER 2025-01-13 08:51 | Outpatient (CLI) | payer MEDICAID, SELFPAY | END 2025-01-13 08:52 | disposition home or self-care (01) | PROVIDERS: Visit Provider Physician Assistant | DX: O09.522 Supervision of elderly multigravida, second trimester (principal); O09.812 Supervision of pregnancy resulting from assisted reproductive technology, second trimester; O99.212 Obesity complicating pregnancy, second trimester; Z3A.18 18 weeks gestation of pregnancy | CPT/HCPCS: 76811 ==

== ENCOUNTER 2025-01-13 10:37 | Outpatient (CLI) | payer MEDICAID, SELFPAY | END 2025-01-13 10:38 | disposition home or self-care (01) | PROVIDERS: Visit Provider Obstetrics & Gynecology | DX: O09.292 Supervision of pregnancy with other poor reproductive or obstetric history, second trimester (principal); Z3A.18 18 weeks gestation of pregnancy; O09.522 Supervision of elderly multigravida, second trimester; O09.812 Supervision of pregnancy resulting from assisted reproductive technology, second trimester; O99.212 Obesity complicating pregnancy, second trimester | CPT/HCPCS: 76811; 82565; 82570; 84156; 84450; 84460 ==

== ENCOUNTER 2025-02-10 00:01 | Outpatient (CLI) | payer MEDICAID, SELFPAY | END 2025-02-10 00:02 | disposition home or self-care (01) | LOC: NFLDREF 02-14 06:50 | PROVIDERS: Visit Provider Obstetrics & Gynecology | DX: O09.522 Supervision of elderly multigravida, second trimester (principal); Z3A.22 22 weeks gestation of pregnancy | CPT/HCPCS: 82570; 84156 ==

== ENCOUNTER 2025-03-23 09:08 | Outpatient (CLI) | payer MEDICAID, SELFPAY ==
--- NOTE | 2025-03-23 09:15 | CRLHL7_ITS ---
For Patients: As a result of the Century Cures Act, medical imaging exams and procedure reports are released immediately into your electronic medical record. You may view this report before your referring provider. If you have questions, please contact your health care provider. OB ULTRASOUND FOLLOW-UP LIMITED, 03/23/2025 CLINICAL HISTORY: Follow-up growth, IVF . COMPARISON: 01/13/2025, 12/03/2024, 11/17/2024. TECHNIQUE: Ultrasound OB pelvis transabdominal. Real-time wynn-scale imaging of the pelvis was performed.? FINDINGS: BUBBA by IVF: 06/12/2025. GA: 28 weeks 3 days. Gestation: Single. Cervix: Not visualized. Positioning: Vertex. Amniotic Fluid: 4.8 cm SDP. Placenta: Technique: TA. Placenta Position: Fundal, posterior. Dopplers: Heart Rate: 139 bpm. BIOMETRY: BPD: 7.1 cm, 28 weeks 1 days. 35.2% HC: 26.6 cm, 28 weeks 6 days. 32.5% AC: 24.8 cm, 29 weeks 0 days. 60.2% FL: 5.2 cm, 27 weeks 5 days. 18.3% FL/AC Ratio: 21.1% HC/AC Ratio: 1.1. EFW: 1243 grams, 2 lb 12 oz. Age by this US: 28 weeks 3 days. BUBBA by this US: 06/12/2025. Percentile by BUBBA: 40.7% IMPRESSION: 1. Sonographic gestational age 28 weeks 3 days and sonographic due date 06/12/2025. Good correlation with dates. Normal interval growth. 2. Estimated weight 41st percentile. Abdominal circumference 60th percentile. Jorgito Nassar M.D. Diagnostic Radiologist [email or web address] Transcribed: 11:51 am DW/Dictated by: Jorgito Nassar MD @ 03/23/2025 10:55:00 AM (Electronically Signed)
== END 2025-03-23 09:09 | disposition home or self-care (01) ==
LOC: US 09:09
PROVIDERS: Visit Provider Obstetrics & Gynecology
DX: O09.813 Supervision of pregnancy resulting from assisted reproductive technology, third trimester (principal); Z3A.28 28 weeks gestation of pregnancy
CPT/HCPCS: 76816

== ENCOUNTER 2025-03-23 09:20 | Outpatient (CLI) | payer MEDICAID, SELFPAY | END 2025-03-23 09:21 | disposition home or self-care (01) | LOC: NFLDREF 03-26 18:39 | PROVIDERS: Visit Provider Obstetrics & Gynecology | DX: O09.523 Supervision of elderly multigravida, third trimester (principal); Z3A.28 28 weeks gestation of pregnancy | CPT/HCPCS: 86592 ==

== ENCOUNTER 2025-05-04 09:22 | Outpatient (CLI) | payer MEDICAID, SELFPAY ==
--- NOTE | 2025-05-04 09:15 | CRLHL7_ITS ---
For Patients: As a result of the Century Cures Act, medical imaging exams and procedure reports are released immediately into your electronic medical record. You may view this report before your referring provider. If you have questions, please contact your health care provider. OB ULTRASOUND BUBBA by LMP or BUBBA by US: 06/12/2025. GA: 34 w, 3 d. Single. Comparison: 03/23/2025, 01/13/2025, 12/03/2024. INDICATION: IVF. TECHNIQUE: Real time grayscale imaging of the fetus was performed. Transabdominal. CERVIX: Not visualized. POSITIONING: Vertex. AMNIOTIC FLUID: 5.6 cm. SDP (N: greater than 2 x 1 cm) BIOPHYSICAL PROFILE: 2: Gross body movements 2: tone 2: Respiratory activity 2: Amniotic fluid SDP (N: greater than 2 x 1 cm) 03/19: Total score PLACENTA: Technique: Transabdominal. PLACENTA POSITION: Posterior. DOPPLER: heart rate: 152 bpm. BIOMETRY: BPD: 8.8 cm. 35 w, 5 d, 81.9 percent. HC: 32.7 cm. 37 w, 0 d, 79.4 percent. AC: 31.6 cm. 35 w, 4 d, 83.6 percent. FL: 6.2 cm. 31 w, 6 d, <3 percent. FL/AC ratio: 19.5 percent. HC/AC ratio: 1.0. EFW: 2504 g. Weight: 5 lbs, 8 oz. age by this US: 35 w, 0 d. BUBBA by this US: 06/08/2025. Percentile by BUBBA: 54.2 percent. IMPRESSION: 1. Normal biophysical profile score 8/8. 2. Sonographic gestational age 35 weeks 0 days with sonographic due date 06/08/2025. Good correlation with dates. Normal interval growth. 3. Estimated weight 54th percentile. Abdominal circumference 84th percentile. 4. FL less than 3rd percentile. Decreased FL/AC ratio. Jorgito Nassar M.D. Diagnostic Radiologist [email or web address] MARISEL/minda perla/Dictated by: Jorgito Nassar MD @ 05/04/2025 3:38:00 PM (Electronically Signed)
== END 2025-05-04 09:23 | disposition home or self-care (01) ==
LOC: US 09:22
PROVIDERS: Visit Provider Obstetrics & Gynecology
DX: O09.813 Supervision of pregnancy resulting from assisted reproductive technology, third trimester (principal); Z3A.35 35 weeks gestation of pregnancy; O26.893 Other specified pregnancy related conditions, third trimester; R10.2 Pelvic and perineal pain; Z3A.34 34 weeks gestation of pregnancy
CPT/HCPCS: 76816; 76819

== ENCOUNTER 2025-05-04 11:19 | Outpatient (CLI) | payer MEDICAID, SELFPAY ==
[2025-05-05 13:32] LABS: Strep B DNA Probe POSITIVE (Negative)
[2025-05-05 14:00] LABS: Strep B Susceptibility Needed? No
== END 2025-05-04 11:20 | disposition home or self-care (01) ==
PROVIDERS: Visit Provider Obstetrics & Gynecology
DX: O26.893 Other specified pregnancy related conditions, third trimester (principal); R10.2 Pelvic and perineal pain; Z3A.34 34 weeks gestation of pregnancy
CPT/HCPCS: 82728; 87081; 87086; 87653

== ENCOUNTER 2025-05-10 09:25 | Outpatient (CLI) | payer MEDICAID, SELFPAY ==
--- NOTE | 2025-05-10 09:15 | CRLHL7_ITS ---
For Patients: As a result of the Cures Act, medical imaging exams and procedure reports are released immediately into your electronic medical record. You may view this report before your referring provider. If you have questions, please contact your health care provider. OB ULTRASOUND BIOPHYSICAL PROFILE, 05/10/2025 CLINICAL HISTORY: IVF. Biophysical profile. TECHNIQUE: Real time wynn scale imaging of the fetus was performed. Transabdominal imaging performed. COMPARISON: 05/04/2025, 03/23/2025, 01/13/2025. FINDINGS: LMP: IVF. BUBBA by US: 06/12/2025. GA: 35 weeks 2 days. Gestation: Single. Cervix: Not visualized. Positioning: Vertex. Amniotic Fluid: 6.46 cm SDP. BIOPHYSICAL PROFILE Gross Body Movements: 2 Tone: 2 Respiratory Activity: 2 Amniotic Fluid SDP: 2 Total Score: 8 Placenta: Technique: TA. Placenta Position: Posterior. Dopplers: Heart Rate: 142 bpm. IMPRESSION: Normal biophysical profile score of 8/8. Jorgito Nassar M.D. Diagnostic Radiologist [email or web address] Transcribed: 10:27 am DW/Dictated by: Jorgito Nassar MD @ 05/10/2025 10:19:00 AM (Electronically Signed)
== END 2025-05-10 09:26 | disposition home or self-care (01) ==
LOC: US 09:25
PROVIDERS: Visit Provider Obstetrics & Gynecology
DX: O09.813 Supervision of pregnancy resulting from assisted reproductive technology, third trimester (principal); Z3A.35 35 weeks gestation of pregnancy
CPT/HCPCS: 76819

== ENCOUNTER 2025-05-17 09:14 | Outpatient (CLI) | payer MEDICAID, SELFPAY ==
--- NOTE | 2025-05-17 09:15 | CRLHL7_ITS ---
For Patients: As a result of the Century Cures Act, medical imaging exams and procedure reports are released immediately into your electronic medical record. You may view this report before your referring provider. If you have questions, please contact your health care provider. INDICATION: IVF. TECHNIQUE: Ultrasound OB pelvis transabdominal. Real-time wynn-scale imaging of the fetus was performed without stress testing. COMPARISON: Ultrasound Ob April 2025 FINDINGS: heart rate: Regular, 148 bpm. position: Cephalic. Amniotic fluid volume single deepest pocket 4.9 cm, 2/2. motion 2/2. tone 2/2. breathing movements 2/2. Umbilical artery S/D ratio: Not measured. IMPRESSION: Single viable intrauterine with a biophysical profile 03/19. Dictated by Jonel Quezada MD @ 05/17/2025 2:39:40 PM (Electronically Signed)
== END 2025-05-17 09:15 | disposition home or self-care (01) ==
LOC: US 09:15
PROVIDERS: Visit Provider Obstetrics & Gynecology
DX: O09.819 Supervision of pregnancy resulting from assisted reproductive technology, unspecified trimester (principal)
CPT/HCPCS: 76819

== ENCOUNTER 2025-05-24 09:29 | Outpatient (CLI) | payer MEDICAID, SELFPAY ==
--- NOTE | 2025-05-24 09:15 | CRLHL7_ITS ---
For Patients: As a result of the Century Cures Act, medical imaging exams and procedure reports are released immediately into your electronic medical record. You may view this report before your referring provider. If you have questions, please contact your health care provider. BUBBA by IVF: 06/12/2025. GA: 37w, 2d. Single. Comparisons: Ultrasound 05/17/2025, 05/10/2025, 05/04/2025. INDICATION: IVF. CERVIX: Not visualized. POSITIONING: Vertex. AMNIOTIC FLUID: 4.4 cm SDP. BIOPHYSICAL PROFILE: Total score: 8. Gross body movements: 2. tone: 2. Respiratory activity: 2. Amniotic fluid: 2. (SDP N: Increase 2 x 1 cm) PLACENTA: Technique: Transabdominal. PLACENTA POSITION: Posterior. DOPPLER: heart rate: 134 bpm. IMPRESSION: Normal biophysical profile 03/19. Jorgito Nassar M.D. Diagnostic Radiologist [email or web address] bM/Dictated by: Jorgito Nassar MD @ 05/24/2025 8:41:00 PM (Electronically Signed)
== END 2025-05-24 09:30 | disposition home or self-care (01) ==
LOC: US 09:30
PROVIDERS: Visit Provider Obstetrics & Gynecology
DX: O09.819 Supervision of pregnancy resulting from assisted reproductive technology, unspecified trimester (principal)
CPT/HCPCS: 76819

== ENCOUNTER 2025-05-31 09:23 | Outpatient (CLI) | payer MEDICAID, SELFPAY ==
--- NOTE | 2025-05-31 09:15 | CRLHL7_ITS ---
For Patients: As a result of the Cures Act, medical imaging exams and procedure reports are released immediately into your electronic medical record. You may view this report before your referring provider. If you have questions, please contact your health care provider. OB ULTRASOUND BUBBA: 06/12/2025. GA: 38 w, 2 d. Single. Comparison: Ultrasound 05/24/2025, 05/17/2025, 05/10/2025. INDICATION: IVF . TECHNIQUE: Real time grayscale imaging of the fetus was performed. Transabdominal. CERVIX: Not visualized. POSITIONING: Vertex. AMNIOTIC FLUID: 3.9 cm. SDP (N: greater than 2 x 1 cm) BIOPHYSICAL PROFILE: 2: Gross body movements 2: tone 2: Respiratory activity 2: Amniotic fluid SDP (N: greater than 2 x 1 cm) 8/8: Total score PLACENTA: Technique: Transabdominal. PLACENTA POSITION: Posterior. DOPPLER: heart rate: 167 bpm. IMPRESSION: Normal biophysical profile score 8/8. Jorgito Nassar M.D. Diagnostic Radiologist [email or web address] MARISEL/minda perla/Dictated by: Jorgito Nassar MD @ 05/31/2025 5:55:00 PM (Electronically Signed)
== END 2025-05-31 09:24 | disposition home or self-care (01) ==
LOC: US 09:23
PROVIDERS: Visit Provider Obstetrics & Gynecology
DX: O09.813 Supervision of pregnancy resulting from assisted reproductive technology, third trimester (principal); Z3A.38 38 weeks gestation of pregnancy
CPT/HCPCS: 76819

== ENCOUNTER 2025-06-05 07:36 | Inpatient (IN) | payer MEDICAID, SELFPAY ==
[2025-06-05] VITALS (64 sets, daily range): BP systolic 90–133; BP diastolic 50–91; PULSE 87–129; RESP 15–17; TEMP 36.5–36.9; O2SAT 98; BMI 43.6
[2025-06-05 08:27] LABS: Hematocrit* 31.3 % (33.0-51.0); Hemoglobin* 10.1 gm/dL (12.0-16.0); Immature Granulocytes Abs Auto 0.01 K/uL (0.00-0.30); Immature Granulocytes Pct Auto 0.2 %; Mean Corpuscular HGB Conc 32 gm/dL (32-36); Mean Corpuscular Hemoglobin 25 pg (26-34); Mean Corpuscular Volume 78 fL (80-100); RDW Coefficient of Variation % 16.6 % (11.5-15.5); Red Blood Count* 4.00 m/uL (4.00-5.20); White Blood Count* 6.55 K/uL (4.50-11.00)
[2025-06-05 08:30] LABS: Lymphocytes Absolute Auto 1.30 K/uL (0.90-2.90); Slide Review Reflex No
[2025-06-05] MEDS: AMPICILLIN 2 GM in 0.9 % SODIUM CHLORIDE Mini-bag 100 ML IVPB (09:09)
[2025-06-05] MEDS: LACTATED RINGERS 1000 ML 1,000 ML 125 ML IV ×2 (09:09→19:27)
[2025-06-05] MEDS: OXYTOCIN 30 unit/500 ML in NS 30 UNIT/500 ML BAG IVPB (09:15)
--- NOTE | 2025-06-05 10:09 | W.PM.LDBA ---
Subjective History of Present Illness Time Seen by Provider: 10:09 Date Seen: 06/05/25 Narrative: Patient is being admitted to Labor and Delivery for induction of labor secondary to AMA and IVF . She is a 39 year old at 39 0/7 weeks gestation. Her full history and physical was dictated by Dr. Mao on 05/17/2025. Please see this for details. Specific Issues/Plans Partner: Yony Olivarez. Daughter: Ashley, born 2006 in [place]. Son: Herson Baby: Girl Patient declined gonorrhea and chlamydia screening, had screening prior to IVF cycle BPP/NST form filled out in referrals (01/13) H&P: 05/17/[address] Mao # IVF Level 2 ultrasound: normal, see below. 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 Select blood transfusion based on serological compatibility # Anemia - Hgb 9.9 on 03/23/25 Oral iron supplement prescribed 34-wk Hgb: 10.1, continue oral iron # History of macrosomia, 9 lb 6 oz # Vulvar keloid scars: Wants left labia majora keloid removed at the time of delivery. Dermatology referral placed 05/17. # GBS positive. Ampicillin in labor Imagin11/17/2024: 10+4 weeks, ? Physiologic mid gut herniation. Follow-up in two weeks. 12/03/2024: 12+4 weeks, resolution of previously noted abdominal wall finding. 01/13/2025 Level 2: Normal visualized anatomy. EFW 81%ile, AC 66%ile. MVP 6.02cm. Posterior placenta, no previa. 7/3/25 echo: Normal 03/23/2025: EFW 1243 g or 2 lb 12 oz (41%), BPD 35%, HC 33%, AC 60%, FL 18%, SDP 4.8 cm, vertex 05/04/2025: EFW 2504g at 54% - BPD 82%, HC 79%, AC 84%, FL <3%. MVP 5.6cm. 03/19 BPP. Vaccinations: COVID: declines - declines [id number] Flu: declined Tdap: given 05/10/2025 RSV: declined GBS completed: positive Last pap: 08/08/23, NIL/-HPV OB - Problem Based A/P Additional Plan (1) High risk due to assisted reproductive technology, antepartum: Status: Acute (2) AMA (advanced maternal age) multigravida 35+: Status: Acute (3) History of macrosomia in in prior , currently : Status: Acute (4) Encounter for induction of labor: Status: Acute Plan GBS prophylaxis initiated. Delivery/Labor/Induction Plan Plan: induction Induction method: per pitocin protocol OB Result Labs Blood Type: B (+) positive Rubella: immune RPR/VDLR: nonreactive GBS Status: positive HBsAG: negative OB Exam Physical Exam Vital signs: Temp Pulse Resp BP Pulse Ox 97.7 F 110 H 17 112/72 98 06/05/25 07:58 06/05/25 07:52 06/05/25 07:58 06/05/25 07:52 06/05/25 07:50 Detailed Labor and Delivery Exam Patient Gravid: yes Dilation (cm): 3 Effacement (%): 40 Cervix position: mid Consistency: soft Contraction Frequency: q2-3 minutes Contraction intensity: Mild Comments: Cervical exam per RN at the time of admission Fetus (Single) Station: -2 Heart Rate Baseline: 145 Retirement Variability: Moderate (6-25)
[2025-06-05] MEDS: BUPIVACAINE 0.25% PF 10 ML 10 ML ML EPIDURAL (12:21)
[2025-06-05] MEDS: ROPIVACAINE 0.2% 100 ml 100 ML 12 MG EPIDURAL ×2 (12:22→20:36)
[2025-06-05] MEDS: LACTATED RINGERS 1000 ML 1,000 ML 999 ML IV (12:31)
--- NOTE | 2025-06-05 12:32 | PM.ANBPRC ---
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 mobile sales assistant She doesn't smoke, ETOH, recreational drug use. Originally from [facility]. What is your current living situation?: I presently have a place to live Problems where you live: no known problems In the past 12 months, utilities in danger of being shut off: no In past 12 months, lack of transportation kept you from medical appts, meetings, work, or getting things needed for daily living: no In the past 12 mos, have been you worried that your food would run out before you had money to buy more?: never true In the past 12 mos, the food you bought just didn't last and you didn't have money to buy more?: never true Smoking Status: Never smoker Do you use any of these nicotine containing products: None How often do you have a drink containing alcohol: never How often do you have six or more drinks on one occasion: Never AUDIT-C Alcohol total score: 0 Non-prescribed substance use: denies use Caffeine: Yes (coffee once in a while) How often does anyone, including family, friends and others, physically hurt you: never How often does anyone, including family, friends and others, insult or talk down to you: never How often does anyone, including family, friends and others, threaten you with harm: never How often does anyone, including family, friends and others, scream or curse at you: never Are you using contraception or practicing any form of control: No Meds Home Medications and Allergies Home Medications ?Medication ?Instructions ?Recorded ?Confirmed ?Type acetaminophen 500 mg tablet 1,000 mg (2 x 500 mg) PO Q6H PRN 05/13/24 06/05/25 Rx Pain 14 days #30 tabs YAM-gosd-DW-omega 3 fatty no.1 27 1 cap PO DAILY 11/17/24 06/05/25 History mg-1 mg-300 mg capsule aspirin 81 mg chewable tablet 81 mg PO QDAY 11/17/24 06/05/25 History ferrous sulfate 324 mg (65 mg 324 mg PO QDAY #90 tabs 03/23/25 05/31/25 Rx iron) tablet,delayed release Allergies Allergy/AdvReac Type Severity Reaction Status Date / Time No Known Allergies Allergy Verified 06/05/25 08:30 Results Labs Labs: Laboratory Results - last 24 hr 06/05/25 08:17 WBC 6.55 RBC 4.00 Hgb 10.1 L Hct 31.3 L MCV 78 L MCH 25 L MCHC 32 RDW Coeff of Dora 16.6 H Plt Count 155 Neut % (Auto) 73.2 H Lymph % (Auto) 19.5 L Winkler % (Auto) 6.0 Eos % (Auto) 0.5 Baso % (Auto) 0.6 Neut # (Auto) 4.80 Lymph # (Auto) 1.30 Winkler # (Auto) 0.40 Eos # (Auto) 0.03 Baso # (Auto) 0.04 Abs Immat Gran (auto) 0.01 Imm/Tot Granulo (auto) 0.2 Blood Type B Positive Antibody Screen NEGATIVE Crossmatch (AHG) See Detail Vital Signs Vital Signs: Last Vital Signs Temp 98.2 F 06/05/25 12:24 Pulse 100 06/05/25 12:30 Resp 16 06/05/25 12:24 BP 109/61 06/05/25 12:30 Pulse Ox 98 06/05/25 12:19 Weight: 108.227 kg Height: 157.48 cm Anesthesia Procedures Epidural Insertion Patient Location: OB Start Time: 11:50 Stop Time: 12:50 Start Date: 06/05/25 Stop Date: 06/05/25 Reason for Block: procedure for pain Patient Position: sitting Performed By: Medardo Grullon Preanesthetic Checklist: IV checked, risks and benefits discussed, monitors and equipment checked, pre-op evaluation, timeout performed and anesthesia consent Prep: chlorhexidine gluconate Monitoring: blood pressure monitoring, continuous pulse oximetry and heart rate Approach: midline Vertebral Space: lumbar (1-5) Epidural Technique: KAMAR saline Needle Type: Tuohy needle Injection Technique: continuous catheter Needle gauge: 17 Needle Length (cm): 10 cm Needle Insertion Depth (cm): 6 Catheter Gauge: 19 Catheter Type: multi-orifice Catheter at skin depth (cm): 12 Test Dose Result: negative and lidocaine 1.5% with epinephrine 1 to 200,000
[2025-06-05] MEDS: AMPICILLIN 1 GM in 0.9 % SODIUM CHLORIDE Mini-bag 100 ML IVPB ×3 (13:00→21:22)
--- NOTE | 2025-06-05 13:39 | PM.OBPNL ---
Subjective Time Seen by Provider: 13:39 Date Seen: 06/05/25 Narrative: Patient is comfortable with epidural. Currently on aware of contractions. Objective Vital Signs: Last Vital Signs Temp 98.2 F 06/05/25 12:24 Pulse 107 H 06/05/25 13:34 Resp 16 06/05/25 12:24 BP 123/60 06/05/25 13:34 Pulse Ox 98 06/05/25 12:19 Pelvic Exam Dilation (cm): 4-5 cm Effacement (%): 50% Station: -2 Comments: Very posterior, soft Contractions Monitor mode: External Contraction Frequency: 1-4 minutes Contraction intensity: Moderate Pitocin Rate (mU/min): 4 Assessment Assessment: induction ongoing Station: -2 Heart Rate Baseline: 145 Assisted Variability: Moderate (6-25) Monitor Accelerations: Absent Monitor Decelerations: Variable Plan Plan: Cervix too posterior to safely consider AROM at this time. Reassess later this afternoon. Continue increasing Pitocin infusion as tolerated.
--- NOTE | 2025-06-05 15:35 | PM.OBPNL ---
Subjective Time Seen by Provider: 15:35 Date Seen: 06/05/25 Narrative: Still comfortable with epidural. Objective Vital Signs: Last Vital Signs Temp 98.2 F 06/05/25 12:24 Pulse 106 H 06/05/25 15:22 Resp 16 06/05/25 12:24 BP 103/58 L 06/05/25 15:22 Pulse Ox 98 06/05/25 12:19 Pelvic Exam Dilation (cm): 5 cm Effacement (%): 60% Station: -1 to 0 Comments: Midposition Contractions Monitor mode: External Contraction pattern: Regular Contraction intensity: Moderate Pitocin Rate (mU/min): 8 Assessment Assessment: induction ongoing Station: -1 Amniotic Membrane Status: AROM (Clear fluid noted) Status: Category l Heart Rate Baseline: 140 [employer] Assistant Variability: Moderate (6-25) Monitor Accelerations: Absent Monitor Decelerations: None Plan Plan: Amniotomy performed, clear fluid noted. Continue current management.
[2025-06-05] MEDS: PHENYLEPHRINE 100 MCG/ML SYRINGE IVP (20:16)
[2025-06-05] MEDS: miSOPROStoL 800 MCG/4 TABLET PR (22:00)
[2025-06-05] MEDS: LIDOCAINE 1 % PF 30 ML INJECTION (22:00)
--- NOTE | 2025-06-05 22:48 | W.PM.OBVAGDE ---
OB Procedure Vag Delivery Mother Details Mother Details: The patient is a 39 year-old, 3, Para 2001, admitted on 06/05/2025 at 39 Weeks and 0 Days gestation for induction of labor secondary to advanced maternal age and IVF . : 3 Para: 2 Weeks Gestation: 39.0 Admission Date: 06/05/25 Additional Details Amniotic Membrane Status: intact Amniotic Membrane Rupture Date: 06/05/25 Amniotic Membrane Rupture Time: 15:31 Amniotic Membrane Fluid Description: Clear Analgesia/Anesthesia Type: Epidural Waterbirth: No Pitcoin: Yes Intrapartal Events: Labor Induction Induction Method: per pitocin protocol Delivery augmentation: rupture of membranes Labor Onset: 12:20 Complete: 21:08 Pushin:44 Heart: heart tones during second stage were 150 baseline with variable decelerations. Delivery Details Delivery Date: 06/05/25 Delivery Time: 21:51 Route of delivery: Gender: Female Infant Viability: Alive; Heart Rate Present Position at Delivery: OA Delivery Details: Delivered via spontaneous vaginal delivery. Infant was placed on maternal abdomen.? Cord was clamped and cut after a 60 second delay. Nose and mouth were bulb suctioned.? Infant weight 8 lb 3 oz. Following delivery and repair of second-degree perineal laceration (see below), the patient requested excision of a large left labial keloid. A total of 18 mL 1% lidocaine was infiltrated into the base of the lesion circumferentially. A scalpel was then used to excise the keloid, which was the size of a walnut. The defect was closed in two layers. Interrupted sutures of 3-0 Vicryl were placed to reapproximate the deep tissues and for hemostasis, and the skin was closed in a subcuticular fashion with 3-0 Vicryl. Excellent cosmesis and hemostasis was noted following the excision. Specimen was put in formalin to be sent for pathology. 1 Minute Interval Total Score: 9 5 Minute Interval Total Score: 9 Additional Details Shoulder Dystocia: No (90 seconds) Placenta Delivery Time: 21:57 Placental Delivery Description: Spontaneous Delivery repair: Vicryl Procedure Done: Global Blood Loss: 600 Laceration: Perineal - 2nd Degree Blood Loss Measurement Type: QBL Bakri Used: No Sponge/Need Count Correct: Yes Cord Vessel Description: 3 Vessels Event Summary Status: Clots were removed from lower uterine segment via bimanual exam 3 times following delivery of the placenta. Uterotonics administered: IV Pitocin, rectal misoprostol 800 mcg, tranexamic acid 1000 mg IV. Mother and were stable after delivery. Disposition: floor
[2025-06-05] MEDS: ACETAMINOPHEN 500 MG TABLET 1000 MG PO (23:05)
[2025-06-06] VITALS (10 sets, daily range): BP systolic 115–142; BP diastolic 61–89; PULSE 75–96; RESP 16–24; TEMP 36.5–36.6; O2SAT 97–100
[2025-06-06 05:05] LABS: Hemoglobin* 9.5 gm/dL (12.0-16.0)
[2025-06-06] MEDS: ACETAMINOPHEN 500 MG TABLET 1000 MG PO ×2 (08:27→19:59)
[2025-06-06] MEDS: BENZOCAINE/MENTHOL SPRAY 85 GM AEROSOL 1 APPLIC TOPICAL (08:27)
[2025-06-06] MEDS: DOCUSATE SODIUM 100 MG CAPSULE PO (08:28)
--- NOTE | 2025-06-06 11:45 | PM.ANPOST ---
Post Anesthesia Note Post Anesthesia Note Patient seen: Inpatient Respiratory Status: adequate Cardiovascular Status: adequate Mental Status: baseline Pain: adequate Temp: baseline Anesthetic awareness: N/A Complications: none Follow care: none
--- NOTE | 2025-06-06 13:29 | PM.OBPNVD1 ---
OB - PN:Subj Subjective Date Seen: 06/06/25 Patient comments OB post-: no complaints, pain well controlled, perineal pain and tolerating diet infant status: bottle (Plans to try breast-feeding at home once her milk comes in) Narrative: The patient is a 39-year-old 3 now para 3003 is status post a normal spontaneous vaginal delivery last evening. She generally feels well. She has had some cramping low abdominal pain and some perineal in labial discomfort, but both are well controlled. She has been bottle feeding her infant today with formula, but tells me that she is thinking that she will try breast-feeding at home once her milk comes in. I encouraged her to let the nurses know this, so that the aching help her establish a pumping regimen today to encourage milk supply. Her vital signs are stable. Bleeding is light. OB - PN: Obj Exam Physical Exam: Vital signs: Temp Pulse Resp BP Pulse Ox O2 Del Method 97.7 F 90 24 122/85 97 Room Air 06/06/25 08:10 06/06/25 08:10 06/06/25 08:10 06/06/25 08:10 06/06/25 08:10 06/06/25 08:10 Constitutional: Constitutional: no acute distress Routine Neck Exam: Neck: Present normal inspection Routine Respiratory Exam: Respiratory: Present CTA bilaterally; Absent respiratory distress Routine Cardiovascular Exam: Cardiovascular: Present RRR; Absent murmur Routine Abdominal Exam: Abdominal: Present soft; Absent tenderness Fundus: Present firm Routine Extremities Exam: Extremities: Present normal inspection and pedal edema; Absent calf tenderness Routine Neurological Exam: Neurological: Present alert and oriented X3 Routine Psychiatric Exam: Psychiatric: Present normal affect OB - PN: Obj Data Labs Labs: Laboratory Results - last 24 hr 06/06/25 05:01 Hgb 9.5 L OB - PN: A/P Delivery Assessment and Plan (1) Status post normal vaginal delivery: Status: Acute (2) Acute on chronic anemia: Status: Acute Assessment and Plan: Will need or iron supplement at discharge. (3) History of surgical removal of keloid: Problem details: Left labial keloid removed at the time of delivery Status: Acute Plan day: 1 Plan: routine care Comments: Anticipate discharge tomorrow.
--- NOTE | 2025-06-07 10:49 | PM.OBDSVD1 ---
DS: Providers Provider Date Seen: 06/07/25 Date of admission: 06/05/25 07:36 Primary care physician: Not a Local Provider Admitting Clinician: Dina Lopez MD Attending Physician on discharge: Zack Hanna CNM Date of Discharge: 06/07/25 DS: Diagnosis Discharge Diagnosis (1) care and examination of lactating mother: Status: Acute (2) Status post normal vaginal delivery: Status: Acute (3) Acute on chronic anemia: Status: Acute Exam Narrative: Exam Narrative: VSS, afebrile GENERAL APPEARANCE: ?normal affect, alert, no distress MOOD: ?appropriate HEENT: normocephalic, neck supple, full ROM CHEST: ?Symmetrical chest wall movement. ?Normal respiratory effort. ?Clear to auscultation HEART: ?regular rate and rhythm ABDOMEN: ?soft, non-tender. Uterine fundus is firm, at Umbilicus, Midline and is appropriate for the stage of recovery. ?Bowel sounds present. PERINEUM: ?mild edema of the perineum, there is a 2nd degree laceration that is healing well. EXTREMITIES: ?normal and trace edema Const: Vital Signs, click to edit/add: Vital Signs - 24 hr 06/06/25 13:25 06/06/25 17:00 06/06/25 19:59 Temperature 97.8 F 97.7 F 97.9 F Pulse Rate [Pulse Oximeter] 80 85 Respiratory Rate 20 24 Blood Pressure [Ri ght Arm] 122/84 115/80 Pulse Oximetry 99 97 Oxygen Delivery Me thod Room Air Room Air 06/06/25 20:07 Temperature 97.9 F Pulse Rate [Pulse Oximeter] Respiratory Rate Blood Pressure [Ri ght Arm] 115/77 Pulse Oximetry 100 Oxygen Delivery Me thod Room Air Documenting provider has reviewed patient's vital signs: yes OB - DS: Summary Hospital Course Hospital Course: Marilia is a 39 y.o. who was admitted to [facility] & [facility] for labor. ?She had an uncomplicated NVD.?The patient feels well. ?The pain is well controlled with current medications. ?She has no new complaints. ?She is breast feeding and reports things are going well.? the patient has done well.? Vitals have been stable.? She has remained afebrile.? Has a good appetite, is tolerating a general diet. ?She is voiding without difficulty.? She is passing gas and has had a bowel movement.? She is ambulating and denies any dizziness.? Has Small amount of rubra lochia. ?She is planning nothing for prevention. Peripartum Data delivery method: Vaginal complications: none [place] Infant Gender: Female Infant Discharge Plan: Home Status at Discharge Functional status at discharge: independent ambulation Overall status at discharge: patient is progressing back to baseline Time Spent with Patient Time attestation: Total time spent providing and/or coordinating discharge services: Time spent: Less than 30 minutes Discharge Plan Discharge Disposition: Home, Self-Care Date of Admission: 06/05/25 07:36 Attending Provider on Discharge: Zack Hanna Primary Care Provider: Provider,Not a Local Condition: Stable Anticipated Discharge Date/Time: 06/07/25 10:05 Discharge Medications: New acetaminophen 500 mg Tablet 1,000 mg PO Q6H PRNQty: 0 0RF docusate sodium 100 mg Capsule 100 mg PO DAILY Qty: 90 0RF ibuprofen 600 mg Tablet 600 mg PO Q6H PRNQty: 60 0RF Continued HFY-mqfw-EA-omega 3 fatty no.1 27-1-300 mg capsule 1 cap PO DAILY ferrous sulfate 324 mg (65 mg iron) tablet,delayed release (DR/EC) 324 mg PO QDAY Qty: 90 1RF acetaminophen 500 mg Tablet 1,000 mg PO Q6H PRN (Reason: Pain) 14 Days Qty: 30 0RF Discontinued aspirin 81 mg tablet,chewable 81 mg PO QDAY Discharge Orders: Discharge Order (Routine); Ordered 06/07/25 Ordered By: Zack Hanna Patient Education: OB Over the Counter Medication Information, OB Vaginal/Breast Feeding Additional Instructions: Discharge instructions were reviewed with the patient including signs and symptoms of infection and home going medications Nothing vaginally for 6 weeks: no tampons or intercourse Off Work or School for 6 weeks 2-week visit: discuss infant feeding concerns, review control options and screen for anxiety/depression. 6-week visit for an annual exam. consultation services are available to all mothers and babies for the first year after delivery.? To make an appointment, please call [phone]. Activity Level: Activity as Tolerated and No strenuous activity Discharge Diet: Regular Follow Up Appointments: Provider,Not a Local [Primary Care Provider, Family Practice] [facility] [Provider Group] Forms: [employer] Info Instructions
--- NOTE | 2025-06-07 12:52 | PC.NURSE ---
Nursing Care Hours: [id number] Pt was calm and cooperative. Tolerating pain. Declined stool softener as pt states she is having good BM. Pt removed her own IV while waiting for discharge. No concerns when looking at site. Discharge instructions provided, all questions and concerns addressed.
== END 2025-06-07 11:50 | disposition home or self-care (01) | DRG 807 ==
PROVIDERS: Admitting Provider Obstetrics & Gynecology; Visit Provider Obstetrics & Gynecology
DX: O99.214 Obesity complicating childbirth (principal); Z37.0 Single live birth; E66.9 Obesity, unspecified; O99.824 Streptococcus B carrier state complicating childbirth; O99.02 Anemia complicating childbirth; D64.9 Anemia, unspecified; L91.0 Hypertrophic scar; O70.1 Second degree perineal laceration during delivery; Z3A.39 39 weeks gestation of pregnancy
CPT/HCPCS: 01967; 36415; 85018; 85025; 86592; 86850; 86900; 86901; 86922; 88305; 88341; 88342; A9270; J0290; J0665; J2003; J2795; J7120